=== PATIENT | male | born 1945 | race Caucasian/White ===

== ENCOUNTER 2017-11-20 09:59 | Emergency (ER) | payer OTHER ==
[2017-11-20 10:16] VITALS: BP 122/66
--- NOTE | 2017-11-20 10:17 | UC ---
Knee Pain HPI - HPI Summary HPI Summary: 72 yo male presents with severe right knee pain since waking up this morning. He tells me that he was feeling fine yesterday, but rolled over in bed this morning and realized his right knee was swollen and painful. He cannot bear weight. He cannot flex his knee due to pain. 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 Also has a LEFT TKR. Denies fever, chills, SOB , chest pain. - History of Current Complaint Chief Complaint: UCLowerExtremity Stated Complaint: KNEE PAIN Time Seen by Provider: 11/20/17 10:17 Hx Obtained From: Patient Onset/Duration: Sudden Onset Severity Initially: Severe Severity Currently: Severe Pain Intensity: 10 Pain Scale Used: 0-10 Numeric Character: Sharp, Aching, Stiffness Able to Bear Weight: No - Allergies/Home Medications Allergies/Adverse Reactions: Allergies Allergy/AdvReac Type Severity Reaction Status Date / Time latex Allergy Hives Verified 11/20/17 10:17 neopreme Allergy Hives Uncoded 11/20/17 10:17 Home Medications: Home Medications Atorvastatin* [Lipitor*] 10 mg PO 1700 11/20/17 [History Confirmed 11/20/17] Levothyroxine TAB* [Synthroid TAB*] 25 mcg PO 0800 11/20/17 [History Confirmed 11/20/17] Meloxicam 7.5 mg PO DAILY 11/20/17 [History Confirmed 11/20/17] Temazepam 1 cap PO DAILY 11/20/17 [History Confirmed 11/20/17] PMH/Surg Hx/FS Hx/Imm Hx Endocrine History: Hypothyroidism, Dyslipidemia Psychological History: Anxiety - Surgical History Surgical History: Yes Surgery Procedure, Year, and Place: bilateral knee replacements - Family History Known Family History: Positive: Hypertension - Social History Occupation: Retired Lives: With Family Alcohol Use: Occasionally Substance Use Type: None Smoking Status (MU): Former Smoker Review of Systems Constitutional: Fever Skin: Negative Respiratory: Negative Cardiovascular: Negative Neurovascular: Negative Musculoskeletal: Other: - Right knee pain Neurological: Negative Psychological: Negative All Other Systems Reviewed And Are Negative: Yes Physical Exam - Summary Physical Exam Summary: GENERAL: NAD. WDWN. SKIN: No rashes, sores, lesions, or open wounds. NECK: Supple. Nontender. No lymphadenopathy. CHEST: No accessory muscle use. Breathing comfortably and in no distress. CV: RRR. Without m/r/g. Pulses intact popliteal, PT, and DP. Brisk cap refill. MSK: Severe TTP about right knee. Moderate edema. Mild warmth. Resting with knee extended - unable to flex due to pain. Unable to bear weight. NEURO: Alert. Sensations intact and symmetric B/L LEs PSYCH: Age appropriate behavior. Triage Information Reviewed: Yes Vital Signs: Initial Vital Signs Temp 101.6 F 11/20/17 10:11 Pulse 86 11/20/17 10:11 Resp 18 11/20/17 10:11 BP 122/66 11/20/17 10:11 Pulse Ox 100 11/20/17 10:11 Knee Pain Course/Dx - Course Course Of Treatment: XR: IMPRESSION: PERIPROSTHETIC FRACTURE OF THE PROXIMAL TIBIA, AGE INDETERMINATE. RECOMMEND. CLINICAL CORRELATION. IN ADDITION, RECOMMEND AN X-RAY OF THE LOWER LEG FOR FURTHER EVALUATION. He is febrile on exam, thus suspect septic joint - advised pt to be further evaluated in the ED. He was agreeable to this and his will drive him. - Differential Dx/Diagnosis Provider Diagnoses: Septic right knee Discharge - Sign-Out/Discharge Documenting (check all that apply): Discharge/Admit/Transfer - Discharge Plan Condition: Stable Disposition: HOME Referrals: Zulema Jara [Primary Care Provider] - Additional Instructions: Please go to the ER for further evaluation of your knee pain and fever - Billing Disposition and Condition Condition: STABLE Disposition: Home
--- NOTE | 2017-11-20 11:09 | RAD ---
INDICATION: Right knee pain status post total knee replacement. COMPARISON: Comparison is made with a prior study from September 13, 2017. TECHNIQUE: 4 views of the right knee were obtained. FINDINGS: The patient is status post total right knee replacement surgery. The bones and prostheses are in normal alignment. There is no gross evidence for loosening. There appears to be a fracture through the posterior cortex of the tibia just distal to the distal stem of the tibial prostheses age indeterminate. This area was not well seen on the prior study. IMPRESSION: PERIPROSTHETIC FRACTURE OF THE PROXIMAL TIBIA, AGE INDETERMINATE. RECOMMEND CLINICAL CORRELATION. IN ADDITION, RECOMMEND AN X-RAY OF THE LOWER LEG FOR FURTHER EVALUATION.
== END 2017-11-20 11:10 | disposition home or self-care (01) ==
LOC: UCEAST 09:59
DX: L03.115 Cellulitis of right lower limb (principal); E78.5 Hyperlipidemia, unspecified; E03.9 Hypothyroidism, unspecified; F41.9 Anxiety disorder, unspecified; Z79.899 Other long term (current) drug therapy; Z91.09 Other allergy status, other than to drugs and biological substances; Z91.040 Latex allergy status; Z87.891 Personal history of nicotine dependence
CPT/HCPCS: 99212; G0463

== ENCOUNTER 2017-11-20 11:35 | Inpatient (IN) | payer OTHER ==
[2017-11-20] MEDS ORDERED: NS 0.9% 1000 ML*IV.FLUID IV ONE (11:43)
[2017-11-20] MEDS ORDERED: Vancomycin(*) 1,000 MG in NS 0.9% 250 ML* 250 ML IVPB ONE (11:46)
[2017-11-20] MEDS ORDERED: Cefepime 2 GM in Dextrose(*) 2 GM/50 ML BAG IV ONE (11:46)
[2017-11-20 12:04] LABS: Hematocrit 39 % (42-52); Hemoglobin 13.1 g/dl (14.0-18.0); Mean Corpuscular HGB Conc 34 g/dl (31-36); Mean Corpuscular Hemoglobin 30 pg (27-31); Mean Corpuscular Volume 88 fL (80-94); Mean Platelet Volume 7.8 um3 (7.4-10.4); Platelet Count 179 10^3/ul (150-450); Red Blood Count 4.38 10^6/ul (4.00-5.40); Red Cell Distribution Width 13 % (10.5-15); White Blood Count 25.9 10^3/ul (3.5-10.8)
--- NOTE | 2017-11-20 12:14 | ED ---
Lower Extremity - HPI Summary HPI Summary: Patient presents with acute atraumatic right knee pain and swelling upon waking this morning - sent from . Pain 8-9/10. Notes swelling compared to Lt knee and pain radiates down into dickson area with walking at times. Otherwise pain is felt within knee, mostly "under patella". He also admits to subjective sweats alternating with chills. Denies headache, neck pain or stiffness, chest pain or shortness of breath, abdominal pain, nausea, vomiting, diarrhea, dysuria, back pain, skin issues/wounds/rashes. He reports he's had bilateral knee replacements, 2 times on the right once in 2005 and again in 2012. The surgeries were performed at the [facility] in [place] by Dr. Lazar who is now retired. He denies previous infection of either replacement. He also reports about a month ago he was noticing some "looseness" with intermittent pangs of pain just beneath the patella in his right knee. He went to the [facility] for consult and was told to start wearing a neoprene knee sleeve. He tried this once and had a severe reaction to his skin and has not anything since. His pain is been intermittent but nothing like he's had today. Looking back through, his charts, he's been seen for pain in the Rt knee 2017. No fx is noted at this time and hardware in place, however on XR today at , a periprosthetic fx is noted, age undetermined. Pt mentioned he had a fx in his tibia from one of the replacements - unclear if this is the same or relatively new. Could be source of pain, looseness as mentioned above as well as infection. - History of Current Complaint Chief Complaint: EDFever Stated Complaint: RT KNEE POS INFECTION-SENT F/CC Time Seen by Provider: 11/20/17 11:43 Hx Obtained From: Patient, Family/Orthopedic Radiologic Technologist - Pain Intensity: 8 - Allergies/Home Medications Allergies/Adverse Reactions: Allergies Allergy/AdvReac Type Severity Reaction Status Date / Time latex Allergy Hives Verified 11/20/17 10:17 neopreme Allergy Hives Uncoded 11/20/17 10:17 Home Medications: Home Medications Glucosamine CAP (NF) 2 cap PO DAILY 11/20/17 [History Confirmed 11/20/17] Multivitamin [Multivitamins] 1 cap PO DAILY 11/20/17 [History Confirmed 11/20/17 ] PMH/Surg Hx/FS Hx/Imm Hx Previously Healthy: Yes Endocrine/Hematology History: Reports: Hx Thyroid Disease - takes medication Denies: Hx Anticoagulant Therapy, Hx Blood Disorders, Hx Bone Marrow Disease , Hx Diabetes, Autoimmune Disease Respiratory History: Denies: Hx Asthma, Hx Chronic Obstructive Pulmonary Disease (COPD) Musculoskeletal History: Reports: Hx Arthritis, Hx Joint Replacement - B/L knees Denies: Hx Rheumatoid Arthritis, Hx Bursitis, Hx Gout - Surgical History Surgery Procedure, Year, and Place: bilateral knee replacements Infectious Disease History: No Infectious Disease History: Denies: Hx of Known/Suspected MRSA, Traveled Outside the [place] in Last 30 Days - Family History Known Family History: Positive: Hypertension - Social History Occupation: Retired Lives: With Family - Alcohol Use: Occasionally Hx Substance Use: No Substance Use Type: Reports: None Hx Tobacco Use: Yes - not currently Smoking Status (MU): Former Smoker Review of Systems Positive: Fever, Chills. Negative: Fatigue Cardiovascular: Negative Respiratory: Negative Gastrointestinal: Negative Positive: no symptoms reported Positive: Arthralgia, Decreased ROM, Edema Skin: Negative Neurological: Negative Psychological: Normal All Other Systems Reviewed And Are Negative: Yes Physical Exam Triage Information Reviewed: Yes Vital Signs On Initial Exam: Initial Vitals Temp Pulse Resp BP Pulse Ox 102.4 F 81 20 119/61 98 11/20/17 11:38 11/20/17 11:38 11/20/17 11:38 11/20/17 11:38 11/20/17 11:38 Vital Signs Reviewed: Yes Appearance: Positive: Well-Appearing, No Pain Distress, Well-Nourished Skin: Positive: Warm, Skin Color Reflects Adequate Perfusion, Dry - no judith erythema or fever of Rt knee compared to Lt however it does appear larger than Lt - no ecchymosis, no streaking; dried, scalling skin along popliteal region which pt reports is reaction from neoprene - dry, NTTP and appears to be healing well Head/Face: Positive: Normal Head/Face Inspection Eyes: Positive: Normal, EOMI, Conjunctiva Clear ENT: Positive: Hearing grossly normal, Pharynx normal - mucosa moist Respiratory/Lung Sounds: Positive: Clear to Auscultation, Breath Sounds Present Cardiovascular: Positive: Normal, RRR, Pulses are Symmetrical in both Upper and Lower Extremities. Negative: Leg Edema Left, Leg Edema Right Abdomen Description: Positive: Nontender, Soft Bowel Sounds: Positive: Present Musculoskeletal: Positive: Strength/ROM Intact - ankle, toes, hip, Limited @ - Rt knee ROM is limited - can extend but is painful; flexion is limited d/t pain at about 15-20 degrees; pain in Rt knee w/ mobilizing this LE in any fashion, Pain @ - anterior proximal tibial region - no popliteal region pain. No judith effusion appreciated but Rt knee is noted to be larger than Lt Neurological: Positive: Normal, Sensory/Motor Intact, Alert, Oriented to Person Place, Time, CN Intact II-III Psychiatric: Positive: Normal - pleasant, calm, polite, alert, good historian Procedures - Procedure Summary Procedure Summary: Rt knee joint aspiration: inferolateral approach to the Rt patella - cleaned area with chlorhexadine before draping and injecting lidocaine 1% superficially cleaned area again 3 x with iodine before inserting 18 gauge needle and aspirating negligible amount of blood before removing needle. This was placed in a cx tube and sent to lab. Hemodynamically stable - dressing applied - pt tolerated well Supervised by Dr. Macias. Diagnostics - Vital Signs Vital Signs Temp Pulse Resp BP Pulse Ox 11/20/17 11:38 102.4 F 81 20 119/61 98 - Laboratory Lab Results: Lab Results 11/20/17 Range/Units 11:57 WBC 25.9 H (3.5-10.8) 10^3/ul RBC 4.38 (4.00-5.40) 10^6/ul Hgb 13.1 L (14.0-18.0) g/dl Hct 39 L (42-52) % MCV 88 (80-94) fL MCH 30 (27-31) pg MCHC 34 (31-36) g/dl RDW 13 (10.5-15) % Plt Count 179 (150-450) 10^3/ul MPV 7.8 (7.4-10.4) um3 Neut % (Auto) Pending Lymph % (Auto) Pending Twiggs % (Auto) Pending Eos % (Auto) Pending Baso % (Auto) Pending Absolute Neuts (auto) Pending Absolute Lymphs (auto) Pending Absolute Monos (auto) Pending Absolute Eos (auto) Pending Absolute Basos (auto) Pending Absolute Nucleated RBC Pending Nucleated RBC % Pending ESR Pending Result Diagrams: 11/23/17 05:44 11/23/17 05:44 Lab Statement: Any lab studies that have been ordered have been reviewed, and results considered in the medical decision making process. Re-Evaluation - Re-Evaluation First Eval Change: Improved - pain and fever improved however pt continued to have pain - acetaminophen was added once surgery would not be taking place any time soon Lower Extremity Course/Dx - Course Course Of Treatment: Pt presents w/ atraumatic Rt knee pain, swelling and stiffness this morning. He also has a fever of 102.4F. H/o 2 Rt TKR's. Spoke w / Dr. Quinteros, ortho on-call, who reports pt needs a revision and he is not equipped to do that. Does not recommend aspiration or any other treatments. Called Dr. Carlson @ [facility] per pt's request as this is where he's had his previous surgeries and they are concerned pt is not stable enough to travel to them. Feel that if pt has purulent drainage in his knee, he needs an I&D to debride the area. If not, needs better sepsis control before completely opening knee joint for wash out and joint replacement. Spoke w/ Dr. Herndon, 2nd ortho on-call here at [facility], who agrees pt may be admitted for sepsis and he will consult. He agrees to I&D if purulence is found in the knee with aspiration. He suspects this is septic knee vs. osteomyelitis. If pt does in fact require more extensive surgery, he will be referred to [facility] upon better control of infection. Dr. Herndon and Dr. Carlson are aware and agree w/ plan. Upon my attempt to aspirate, no purulence is identified. Sepsis protocol was initated as soon as pt arrived given his hx. He has a fever of 102.4F and WBC of 25. Fever improved with toradol and vitals remain well controlled. Critical care time 45 minutes. He will be admitted under Dr. Guerra. Pt stable and comfortable at time of transition of care. - Diagnoses Provider Diagnoses: Sepsis, Right knee skin infection Discharge - Sign-Out/Discharge Documenting (check all that apply): Discharge/Admit/Transfer - Discharge Plan Condition: Good Disposition: ADMITTED TO [facility] - Billing Disposition and Condition Condition: GOOD Disposition: Admitted to [facility]
[2017-11-20] MEDS ORDERED: Ketorolac INJ* 30 MG/ML 1 ML VIAL IV PUSH ONE (12:17)
[2017-11-20 12:20] LABS: INR 1.18 (0.77-1.02)
[2017-11-20 12:21] LABS: EGFR Non-African American 74.1 (>60)
[2017-11-20 12:25] LABS: ABS Basophils 0 10^3/ul (0-0.2); ABS Eosinophils 0 10^3/ul (0-0.6); ABS Lymphocytes 0.5 10^3/ul (1.0-4.8); ABS Monocytes 2.4 10^3/ul (0-0.8); ABS Nucleated RBC 0 10^3/ul; Eosinophil % 0 % (0-6); Lymphocyte % 1.9 % (25-47); Nucleated Red Blood Cells % 0
--- NOTE | 2017-11-20 12:36 | RAD ---
INDICATION: Sepsis. COMPARISON: There are no prior studies available for comparison. TECHNIQUE: A portable view of the chest was obtained. FINDINGS: Cardiac and mediastinal contours appear to be within normal limits. The lungs are clear. No pleural effusion is seen. IMPRESSION: NO EVIDENCE FOR ACUTE DISEASE.
[2017-11-20] MEDS ORDERED: Acetaminophen TAB* 325 MG PO ONE (13:38)
[2017-11-20] MEDS ORDERED: Ondansetron INJ* 2 MG/ML VIAL IV PRN (14:18)
[2017-11-20] MEDS ORDERED: NS 0.9% 1000 ML* 1,000 ML IV SCH (14:30)
[2017-11-20] MEDS ORDERED: Vancomycin per Pharmacy* NOTE FOLLOW UP SCH (15:00)
[2017-11-20] MEDS ORDERED: Cefepime 1 GM in Dextrose(*) 1 GM/50 ML BAG IV SCH (15:00)
[2017-11-20] MEDS: Atorvastatin* 10 MG TAB PO SCH (16:21)
[2017-11-20] MEDS: Vancomycin(*) 1,000 MG in NS 0.9% 250 ML* 250 ML IVPB ONE ×2 (16:22→16:38)
[2017-11-20] MEDS ORDERED: Pneumococcal *Vac Polyvalent 0.5 ML VIAL IM ONE (17:00)
[2017-11-20] MEDS: oxyCODONE/Acetamin 5/325 MG* TAB PO PRN (18:12)
--- NOTE | 2017-11-20 19:11 | HP ---
CC: Zulema Jara NP with [facility] * MEDICINE HISTORY AND PHYSICAL: DATE OF ADMISSION: 11/20/17 PROVIDER: Shweta Krishnamurthy NP ATTENDING PHYSICIAN: Dr. Kenn Guerra * (dictated by Shweta Krishnamurthy NP). CONSULTING PHYSICIAN: Dr. Claudio Herndon, Orthopedic Surgery. PRIMARY CARE PROVIDER: Zulema Jara NP, at [facility]. CHIEF COMPLAINT: Right knee pain. HISTORY OF PRESENT ILLNESS: Mr. Sr is a 72-year-old male patient who initially presented to [facility] with complaint of right knee pain. He states that he woke up this morning with excruciating pain, but denies any known trauma or open wounds to the extremity. He noted that there was pain and swelling as well as heat and redness to the extremity. He states that just under the patella that there was excruciating pain with light touch. He also admits to subjective sweats and alternating with chills. The pain is severe and constant. He states that his leg was collapsed when trying to ambulate. He denies any headache, neck pain or stiffness, previous fever, chest pain, shortness of breath, abdominal pain, nausea, vomiting, diarrhea, dysuria, rashes , wounds or back pain. He does report that a month ago, he was having some "looseness" with intermittent pain and was seen at the outpatient [facility] in [place]. He was recommended to start wearing a neoprene knee sleeve, but states that he wore it and that he had extreme reaction with redness and hives that only just recently resolved. Pain has continued to be intermittent, but not to the extent that it has been today. Again, he denies any previous fevers. Mr. Sr has multiple surgeries including bilateral knee replacements, but the right knee being replaced twice once in 2005 and again in 2012. His physician was Dr. Lazar who is now retired and they were performed at the [facility] in [place]. He denies any complications or previous infections with either replacement. Here in the ER, he has had fever as high as 102.4. He has had a bedside attempt for incision and drainage, but minimal to no purulent was obtained. The culture from procedure is still pending. The case was discussed with Dr. Quinteros of Orthopedic Surgery who referred the patient to go to [place] to see his previous physician. However, the [facility] was concerned that the patient was stable to make the transfer and felt that he would at least need to be treated with an incision and drainage here prior to going to the facility. The case was also reviewed by Dr. Herndon of [facility] who agreed to consult on the patient. PAST MEDICAL HISTORY: Includes: 1. Hypothyroidism. 2. Hyperlipidemia. 3. Osteoarthritis. PAST SURGICAL HISTORY: He also reports past surgical history of 3 right shoulder surgeries and 2 left shoulder surgeries as well as a left carpal tunnel release. HOME MEDICATIONS: 1. Multivitamin 1 capsule daily. 2. Meloxicam 7.5 mg daily. 3. Glucosamine 2 capsules daily. 4. Atorvastatin 10 mg in the evening. 5. Temazepam 15 mg at bedtime. 6. Levothyroxine 25 mcg q.a.m. ALLERGIES: Include LATEX and NEOPRENE. FAMILY HISTORY: Unknown. The patient states he is adopted. SOCIAL HISTORY: He is a former smoker. He states that he quit 40 years ago. He denies any history of alcohol use. He occasionally smokes marijuana. He is retired. He enjoys fishing and states that he is very active with walking long distances and is able to tow a canoe through the [place] for a fishing in [place]. He is not , but he does live with is ex- who is now "his domestic partner." Her name is Jeri Jamison and she is his surrogate decision maker in the event of emergency. REVIEW OF SYSTEMS: As per HPI. All pertinent positives and negatives are included in the HPI. A 12-point review of systems was completed. PHYSICAL EXAMINATION GENERAL: This is a very pleasant older male patient lying on the ED stretcher, in no acute distress. VITAL SIGNS: Temperature 100.5, pulse rate 83, respiratory rate 18, blood pressure 114/68 and O2 saturation is 95% on room air. HEENT: Head is atraumatic, normocephalic. Face is symmetrical. Pupils are equal, round and reactive to light. Extraocular movements are intact. Oral mucosa is moist. There is no oropharyngeal erythema or exudates. NECK: Supple with full range of motion. No tenderness upon palpation. No lymphadenopathy appreciated. No JVD noted. RESPIRATORY: Lungs are clear to auscultation. CARDIAC: Normal S1 and S2 heart sounds with regular rate and rhythm. No murmurs, rubs or gallops appreciated. There is no left-sided peripheral edema. There is mild right-sided edema distal to the knee joint, most notably in the pretibial region. Distal pulses are 2+ and symmetric and equal. ABDOMEN: Soft, nontender and nondistended with normoactive bowel sounds times all 4 quadrants. There is no hepatosplenomegaly. MUSCULOSKELETAL: There is no clubbing or cyanosis. The patient does have full range of motion of the upper extremities, left lower extremity, right is slightly limited with flexion of the right knee secondary to pain. SKIN: No rashes noted. There is significant heat and tenderness to the right lower extremity. Mild erythema most notably at the level of patella and just distally along the tibia. There is more notably pretibial edema. Again as per above, there is a strong pedal pulses. NEURO: Cranial nerves II through XII are grossly intact. No focal deficits noted. Speech is clear. PSYCH: He is alert and oriented x3. Affect is appropriate. LABORATORY DATA AND DIAGNOSTIC STUDIES: CBC: WBC is 25.9, hemoglobin 13.1, hematocrit 39, platelet count 179. CMP: Sodium 138, potassium 3.8, chloride 103, carbon dioxide 25, BUN 12, creatinine 0.99, glucose 113, lactic acid 2.0, calcium 9.2, total bilirubin 1.3, AST 19, ALT 24, alk phos 58, troponin 0.01. CRP is 68.22. Albumin 4.4. EKG reviewed shows normal sinus rhythm with no ST or T-wave changes to indicate acute ischemia. There was borderline right axis deviation, rate at 82. No previous EKGs on record. Chest x-ray shows no acute pathology. Urinalysis is pending. Wound culture is also pending. There are limited records on this patient in our system for review. ASSESSMENT AND PLAN: Mr. Sr is a 72-year-old gentleman with a history of hypothyroidism, osteoarthritis, hyperlipidemia, and previous knee replacements who presents today with concern for fever and pain thought to be secondary to septic arthritis versus osteomyelitis. 1. Right knee pain, suspected osteomyelitis. Following this, attempted bedside incision and drainage with very little purulence or fluid to be cultured from the joint space. This was reviewed with Dr. Herndon and there was a decision made that to not take the patient to the OR today for an incision and drainage as this more likely represents an osteomyelitis. In any event, Mr. Sr received cefepime and vanco in the ER, which will be continued pending the culture result in order to ensure that he has appropriate MRSA and gram negative coverage. He has received the appropriate fluid bolus with concern for sepsis and he will be continued on continuous IV fluids. As he is not going to the OR, he will be allowed to eat. He will receive Ortho consultation later. He received Toradol in the ER with good effect, but given that he may be going to the OR in the near future, we will hold on any further Toradol and he will be started on IV morphine and p.r.n. Percocet as needed for pain and this will be adjusted accordingly. He is currently nonweightbearing to the extremity given the amount of pain that it causes him. Again, he has pending orthopedic evaluation. In addition to the Orthopedics Surgical consult , we will also request an Infectious Disease consult from Dr. Haas for presumed colonization of existing hardware. 2. Sepsis. Mr. Sr meets sepsis criteria, but the so far criteria scoring 4 with mildly elevated total bilirubin indicating beginning of multiorgan system effects. He also was noted to have a MAP less than 70 during his time in the ER , although this has been appropriately resolved with fluids. Additionally, he does have leukocytosis and significant fevers. He has appropriately received antibiotic therapy and blood cultures were drawn prior to initiation of these therapies. Urine is pending. The chest x-ray shows no other concerns. It is likely that the patient's right lower extremity is the source of the sepsis and given that he has had knee replacement and he has hardware in the extremity, there is concern for osteomyelitis and colonization of the hardware, which will need to be addressed. At this point in time, we will continue supportive care and closely monitor this patient. 3. Hypothyroidism. Continue current dose of levothyroxine. 4. Hyperlipidemia. Continue atorvastatin. 5. History of osteoarthritis. The patient has appropriate pain medications. Meloxicam will be held in anticipation of potential surgery and further procedures. 6. Preoperative clearance. Mr. Sr does not have any known history of cardiac disease, diabetes or chronic kidney disease. There are no EKG or chest x-ray abnormalities of concern. He is not chronically on any antiplatelet agents or anticoagulants and only takes meloxicam, which is currently on hold. He has good activity tolerance. He is able to climb flight of stairs. He is active and walks extensive distances on a regular basis. He does appear to be medically optimized for surgery, should he need it. 7. FEN. He has ordered continuous fluids. As he is not going to the OR today , he will be ordered a heart healthy diet. 8. DVT prophylaxis. He is ordered SCDs and subcu heparin, which will be held once there is a confirmed time and date for any surgical interventions. 9. Code status. He is a full code. 10. Disposition. Pending response to current therapies. TIME SPENT: Time spent on this admission was approximately 60 minutes with more than half that time spent [id number] with the patient obtaining history and physical, performing physical examination and reviewing the plan of care. Plan of care was also reviewed with my attending, Dr. Guerra, who is in agreement. SHWETA KRISHNAMURTHY, GEGE [id number]/CPS #: [id number] BLAYNE
[2017-11-20] MEDS: Temazepam CAP* 15 MG PO SCH (20:27)
[2017-11-20] MEDS: Cyclobenzaprine TAB* 10 MG PO PRN (20:27)
[2017-11-20] MEDS: RiFAMPin CAP* 300 MG CAP PO SCH (20:27)
--- NOTE | 2017-11-20 21:38 | CONS ---
ORTHOPEDIC CONSULT: DATE OF CONSULT: 11/20/17 CHIEF COMPLAINT: Right knee. HISTORY OF PRESENT ILLNESS: Mr. Sr is a 72-year-old male who got up at 3:00 in the morning to go the bathroom to urinate and had severe right knee pain. He also had some chills and sweats and was brought to the emergency room here earlier today. His knee was warm and painful, and x-rays show a chronic area where the cortex proximally appears to have a defect. This was read as a fracture by the radiologist. When talking about the knee, he reports it may have been a month or so where it was bothering him, but I pointed out to him that he has x-rays from 09/13/17 where he had presented with knee pain. He reports it may have been going on for some time. [facility] time and a neoprene sleeve was recommended to reduce the swelling. He reports he had quite the skin reaction and still has some of that behind the knee. He did have the knee replaced in approximately 2006 and then underwent a revision in 2012. At the time of the revision, the stem on the tibial component broke the tibia at the midshaft. He reports once it healed, he had done all right until several months ago. He would notice that the knee would occasionally give him some troubles and describes it as the knee wanting to hyperextend. In some ways this is odd as he has a constrained knee, so there is no way that the knee could hyperextend or in any way be unstable. He does though already in August have that very specific lytic area proximally and there is osteolysis of the lateral tibial plateau. When I ask him where his pain is, that is exactly where he first points, then all about the proximal tibia and he moves up to the knee as well. PREVIOUS MEDICAL HISTORY: Hypothyroidism and dyslipidemia. MEDICATIONS: On admission: 1. Meloxicam 7.5 mg daily. 2. Atorvastatin 10 mg p.o. q.h.s. 3. Levothyroxine 25 mcg daily. 4. Temazepam 15 mg p.o. q.h.s. He also takes supplements includin. Glucosamine. 2. Multivitamin. MEDICATION ALLERGIES: LATEX and NEOPRENE. PHYSICAL EXAM: General: Mature male, in no apparent distress, sitting up in the hospital bed. Right knee: He is wrapped from where he had the knee aspirated, but that appears benign. He has a scar anteriorly about the knee and it does appear that it has been gone through at least once as it has that sunken-in appearance. He is not particularly tender about the medial and lateral femoral condyles, but as I come to the flare of the tibia, he is very specifically much more tender both in the medial and lateral aspects. He is less tender anteriorly over the tibial tubercle. He prefers that the knee is slightly bent, but can bring the knee further out in extension and flex a little bit further. He then started to have more troubles with muscle spasms. ASSESSMENT: Osteomyelitis, right proximal tibia. PLAN: I discussed with Mr. Sr that I am not convinced that the joint itself is infected, rather he appears to have either osteolysis of the proximal tibia with a fracture, or an osteomyelitis considering there was no other pain that he had. With the warmth of the proximal tibia, x-ray changes and his increased CRP, osteomyelitis of the proximal tibia is a more likely diagnosis. For the sepsis protocol, it was important that he be started with the antibiotic, so unfortunately the aspiration of the knee was done after that. The Gram stain for the knee was negative, but final cultures will still be pending. I discussed with Mr. Sr that with an infection of the bone, sometimes this can be suppressed using antibiotic treatment, specifically Bactrim DS twice a day with rifampin 300 mg twice a day. He has been started on cefepime and vancomycin, and I will add in the rifampin. I will also add in Flexeril for him to help with his muscle spasms. Once he is improved from a sepsis standpoint, he can be discharged on the Bactrim and rifampin, and follow up with the [facility] orthopedist. They could then discuss debridement. In some ways, not removing the knee would make sense, but there may not be any other way to address the infection in the proximal tibia. For right now though , he is clearly stable and does not need a washout of the knee nor a removal of his components. [id number] #: [id number] BLAYNE
[2017-11-20] MEDS: Acetaminophen TAB* 325 MG PO PRN (21:47)
[2017-11-20] MEDS: Heparin VIAL(*) 5000 UNITS/ML VIAL (FIVE THOUSAND) SUBCUT SCH (21:48)
[2017-11-20] MEDS ORDERED: Vancomycin(*) 1,000 MG in NS 0.9% 250 ML* 250 ML IVPB SCH (23:00)
[2017-11-20] MEDS: Vancomycin(*) 1,250 MG in NS 0.9% 250 ML* 250 ML IVPB SCH (23:02)
[2017-11-20] MEDS: Morphine VIAL* 4 MG/ML VIAL (1 ml vial) IV PRN (23:09)
[2017-11-21] MEDS: Cefepime 1 GM in Dextrose(*) 1 GM/50 ML BAG IV SCH ×2 (00:34→15:52)
[2017-11-21] MEDS: oxyCODONE/Acetamin 5/325 MG* TAB PO PRN (00:55)
[2017-11-21] MEDS: Heparin VIAL(*) 5000 UNITS/ML VIAL (FIVE THOUSAND) SUBCUT SCH (05:33)
[2017-11-21] MEDS: Levothyroxine TAB* 25 MCG TAB PO SCH (05:33)
[2017-11-21] MEDS: Cyclobenzaprine TAB* 10 MG PO PRN (07:43)
[2017-11-21 07:44] LABS: Hematocrit 36 % (42-52); Hemoglobin 12.2 g/dl (14.0-18.0); Mean Corpuscular HGB Conc 34 g/dl (31-36); Mean Corpuscular Hemoglobin 30 pg (27-31); Mean Corpuscular Volume 89 fL (80-94); Mean Platelet Volume 8.3 um3 (7.4-10.4); Platelet Count 147 10^3/ul (150-450); Red Blood Count 4.03 10^6/ul (4.00-5.40); Red Cell Distribution Width 14 % (10.5-15)
[2017-11-21] MEDS: Morphine VIAL* 4 MG/ML VIAL (1 ml vial) IV PRN (07:44)
[2017-11-21 07:45] LABS: ABS Basophils 0 10^3/ul (0-0.2); ABS Eosinophils 0 10^3/ul (0-0.6); ABS Lymphocytes 1.6 10^3/ul (1.0-4.8); ABS Monocytes 2.7 10^3/ul (0-0.8); ABS Neutrophils 24.6 10^3/ul (1.5-7.7); ABS Nucleated RBC 0 10^3/ul; Eosinophil % 0 % (0-6); Lymphocyte % 5.6 % (25-47); Nucleated Red Blood Cells % 0
[2017-11-21 08:44] LABS: EGFR Non-African American 73.2 (>60)
[2017-11-21] MEDS: Vitamin THERAPEUTIC TAB PO SCH (09:38)
[2017-11-21] MEDS: RiFAMPin CAP* 300 MG CAP PO SCH ×2 (09:38→20:53)
--- NOTE | 2017-11-21 10:30 | PN ---
Progress Note - Progress Note Date of Service: 11/21/17 SOAP: Subjective: Pt is doing well. Cont fever/chills but improving. Pain controlled. Denies CP/ SOB. VSS overnight Objective: PE- 72 y/o M NAD, A&Ox3 RLW- skin intact, well healed surgical incision, warmth surrounding the proximal tibia and knee, tender to palpation over knee, mild effusion, + DF/PF ankle, +2 Dp pulse, SILT distally Vital Signs Temp Pulse Resp BP Pulse Ox 98.8 F 72 20 148/65 89 11/21/17 04:23 11/21/17 04:23 11/21/17 09:40 11/21/17 04:23 11/21/17 04:23 Laboratory Results - last 24 hr 11/20/17 11/20/17 11/20/17 11:57 11:57 11:57 WBC 25.9 H RBC 4.38 Hgb 13.1 L Hct 39 L MCV 88 MCH 30 MCHC 34 RDW 13 Plt Count 179 MPV 7.8 Neut % (Auto) 88.5 H Lymph % (Auto) 1.9 L [place] % (Auto) 9.4 H Eos % (Auto) 0 Baso % (Auto) 0.2 Absolute Neuts (auto) 23.0 H Absolute Lymphs (auto) 0.5 L Absolute Monos (auto) 2.4 H Absolute Eos (auto) 0 Absolute Basos (auto) 0 Absolute Nucleated RBC 0 Nucleated RBC % 0 ESR 13 INR (Anticoag Therapy) 1.18 H APTT 29.8 Sodium 138 Potassium 3.8 Chloride 103 Carbon Dioxide 25 Anion Gap 10 BUN 22 Creatinine 0.99 Est GFR ( Amer) 89.7 Est GFR (Non-Af Amer) 74.1 BUN/Creatinine Ratio 22.2 H Glucose 113 H Lactic Acid Calcium 9.2 Total Bilirubin 1.30 H AST 19 ALT 24 Alkaline Phosphatase 58 Troponin I 0.01 C-Reactive Protein 68.22 H Total Protein 7.3 Albumin 4.4 Globulin 2.9 Albumin/Globulin Ratio 1.5 11/20/17 11/20/17 11/21/17 11:57 20:23 07:16 WBC 29.0 H RBC 4.03 Hgb 12.2 L Hct 36 L MCV 89 MCH 30 MCHC 34 RDW 14 Plt Count 147 L MPV 8.3 Neut % (Auto) 84.9 H Lymph % (Auto) 5.6 L [place] % (Auto) 9.4 H Eos % (Auto) 0 Baso % (Auto) 0.1 Absolute Neuts (auto) 24.6 H Absolute Lymphs (auto) 1.6 Absolute Monos (auto) 2.7 H Absolute Eos (auto) 0 Absolute Basos (auto) 0 Absolute Nucleated RBC 0 Nucleated RBC % 0 ESR INR (Anticoag Therapy) APTT Sodium Potassium Chloride Carbon Dioxide Anion Gap BUN Creatinine Est GFR ( Amer) Est GFR (Non-Af Amer) BUN/Creatinine Ratio Glucose Lactic Acid 2.0 1.5 Calcium Total Bilirubin AST ALT Alkaline Phosphatase Troponin I C-Reactive Protein Total Protein Albumin Globulin Albumin/Globulin Ratio 11/21/17 07:16 WBC RBC Hgb Hct MCV MCH MCHC RDW Plt Count MPV Neut % (Auto) Lymph % (Auto) [place] % (Auto) Eos % (Auto) Baso % (Auto) Absolute Neuts (auto) Absolute Lymphs (auto) Absolute Monos (auto) Absolute Eos (auto) Absolute Basos (auto) Absolute Nucleated RBC Nucleated RBC % ESR INR (Anticoag Therapy) APTT Sodium 139 Potassium 4.1 Chloride 107 Carbon Dioxide 23 Anion Gap 9 BUN 25 H Creatinine 1.00 Est GFR ( Amer) 88.6 Est GFR (Non-Af Amer) 73.2 BUN/Creatinine Ratio 25.0 H Glucose 99 Lactic Acid Calcium 8.7 Total Bilirubin AST ALT Alkaline Phosphatase Troponin I C-Reactive Protein 239.63 H Total Protein Albumin Globulin Albumin/Globulin Ratio Assessment: 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
[2017-11-21] MEDS: Vancomycin(*) 1,250 MG in NS 0.9% 250 ML* 250 ML IVPB SCH (11:04)
[2017-11-21] MEDS: Acetaminophen TAB* 325 MG PO PRN ×2 (11:10→20:00)
--- NOTE | 2017-11-21 11:12 | PN ---
Subjective Date of Service: 11/21/17 Interval History: pt c/o intermittent rigors/chills. Pain in R leg still unchanged, severe when moving Objective Active Medications: Acetaminophen (Tylenol Tab*) 650 mg PO Q4H PRN PRN Reason: FEVER/PAIN Last Admin: 11/20/17 21:47 Dose: 650 mg Atorvastatin Calcium (Lipitor*) 10 mg PO 1700 [facility] Last Admin: 11/20/17 16:21 Dose: 10 mg Cyclobenzaprine HCl (Flexeril Tab*) 10 mg PO TID PRN PRN Reason: SPASMS - MUSCLE Last Admin: 11/21/17 07:43 Dose: 10 mg Heparin Sodium (Porcine) (Heparin Vial(*)) 5,000 units SUBCUT Q8HR [facility] Last Admin: 11/21/17 05:33 Dose: 5,000 units Cefepime HCl (Maxipime 1 Gm In Dextrose Duplex (*)) 1 gm in 50 mls @ 100 mls/ hr IV Q12H [facility] Last Admin: 11/21/17 00:34 Dose: 100 mls/hr Vancomycin HCl 1,250 mg/ (Sodium Chloride) 250 mls @ 166.667 mls/hr IVPB Q12H [facility] Last Admin: 11/21/17 11:04 Dose: 166.667 mls/hr Sodium Chloride (Ns 0.9% 1000 Ml*) 1,000 mls @ 150 mls/hr IV PER RATE [facility] Levothyroxine Sodium (Synthroid Tab*) 25 mcg PO DAILY@0600 [facility] Last Admin: 11/21/17 05:33 Dose: 25 mcg Morphine Sulfate (Morphine Vial*) 2 mg IV Q4H PRN PRN Reason: PAIN - MILD Last Admin: 11/21/17 07:44 Dose: 2 mg Multivitamins (Theragran Tab*) 1 tab PO DAILY [facility] Last Admin: 11/21/17 09:38 Dose: 1 tab Ondansetron HCl (Zofran Inj*) 4 mg IV Q4H PRN PRN Reason: NAUSEA/VOMITING Oxycodone/Acetaminophen (Percocet 5/325 Tab*) 1 tab PO Q4H PRN PRN Reason: PAIN - MILD TO MODERATE Last Admin: 11/20/17 18:12 Dose: 1 tab Oxycodone/Acetaminophen (Percocet 5/325 Tab*) 2 tab PO Q4H PRN PRN Reason: PAIN - MODERATE TO SEVERE Last Admin: 11/21/17 00:55 Dose: 2 tab Pharmacy Consult (Vancomycin Per Pharmacy*) 1 note FOLLOW UP .VANC PER PHARMACY [facility] Pharmacy Profile Note (Vancomycin Trough Check) 1 note FOLLOW UP 1030 ONE Stop: 11/22/17 10:31 Rifampin (Rifampin Cap*) 300 mg PO BID [facility] Last Admin: 11/21/17 09:38 Dose: 300 mg Temazepam (Restoril Cap*) 15 mg PO BEDTIME [facility] Last Admin: 11/20/17 20:27 Dose: 15 mg Vital Signs - 8 hr 11/21/17 11/21/17 11/21/17 04:00 04:23 07:43 Temperature 98.8 F Pulse Rate 72 Respiratory 16 18 18 Rate Blood Pressure 148/65 (mmHg) O2 Sat by Pulse 89 Oximetry 11/21/17 11/21/17 07:44 09:40 Temperature Pulse Rate Respiratory 18 20 Rate Blood Pressure (mmHg) O2 Sat by Pulse Oximetry Oxygen Devices in Use Now: None Appearance: 72 yo m in nAD, AAOx3 Eyes: No Scleral Icterus Ears/Nose/Mouth/Throat: NL Teeth, Lips, Gums, Mucous Membranes Moist Neck: NL Appearance and Movements; NL JVP, Trachea Midline Respiratory: Symmetrical Chest Expansion and Respiratory Effort, Clear to Auscultation Cardiovascular: NL Sounds; No Murmurs; No JVD, RRR Abdominal: NL Sounds; No Tenderness; No Distention, No Hepatosplenomegaly Lymphatic: No Cervical Adenopathy Extremities: - - R knee and proximal tibia increased warmth, mild edema and tenderness. Severe pain elicited with any attempted movement of R leg Skin: No Rash or Ulcers, No Nodules or Sclerosis Neurological: Alert and Oriented x 3, NL Muscle Strength and Tone Result Diagrams: 11/21/17 07:16 11/21/17 07:16 Additional Lab and Data: Lab Results 11/20/17 Range/Units 11:57 WBC 25.9 H (3.5-10.8) 10^3/ul RBC 4.38 (4.00-5.40) 10^6/ul Hgb 13.1 L (14.0-18.0) g/dl Hct 39 L (42-52) % MCV 88 (80-94) fL MCH 30 (27-31) pg MCHC 34 (31-36) g/dl RDW 13 (10.5-15) % Plt Count 179 (150-450) 10^3/ul MPV 7.8 (7.4-10.4) um3 Neut % (Auto) Pending Lymph % (Auto) Pending Nicholas % (Auto) Pending Eos % (Auto) Pending Baso % (Auto) Pending Absolute Neuts (auto) Pending Absolute Lymphs (auto) Pending Absolute Monos (auto) Pending Absolute Eos (auto) Pending Absolute Basos (auto) Pending Absolute Nucleated RBC Pending Nucleated RBC % Pending ESR Pending Microbiology and Other Data: Microbiology 11/20/17 11:57 Anaerobic Blood Culture - Preliminary Blood Venous 11/20/17 14:30 Gram Stain - Final Leg Right Assess/Plan/Problems-Billing Assessment: 72 yo M with h/o r knee replacement and revision, as well as dyslipidemia presents with R knee pain and possible diagnosis of R tibia osteomyelitis - Patient Problems (1) Osteomyelitis Comment: Of R tibia +/- hardware infection. CRP increased, pt is having intermittient rigors, blood cx positive for Staph, temp >101 D/w DR. Herndon, concern for pt is septic and needs wash out. Revieved pt's medical records and pt has h/o good exercise tolerance, no h/o CAD and is an acceptable candidate for the anticipated procedure. will start NPO orders. cont broad spectrum antibiotics: Vanc/Cefepime/Rimfampin (2) DVT prophylaxis Comment: HSQ held prior to OR Status and Disposition: inpatient
[2017-11-21] MEDS ORDERED: TOBRAMYCIN 1.2 GM ONE (12:00)
[2017-11-21] MEDS ORDERED: Vancomycin(*) 1,000 MG VIAL ONE (12:11)
[2017-11-21] MEDS ORDERED: Midazolam* 1 MG/ML 2 ML VIAL (2 MG) ONE (12:25)
[2017-11-21] MEDS ORDERED: fentaNYL* 50 MCG/ML 2 ML VIAL (100 MCG VIAL) ONE ×2 (12:25→13:55)
[2017-11-21] MEDS ORDERED: Ondansetron INJ* 2 MG/ML VIAL IV ONE (12:35)
[2017-11-21] MEDS ORDERED: Ondansetron INJ* 2 MG/ML VIAL ONE (12:40)
[2017-11-21] MEDS ORDERED: Bupivacaine 0.25% W/EPI* 10 ML SDV ONE ×2 (12:42→14:27)
[2017-11-21] MEDS ORDERED: KETAMINE HCL* 50 MG/ML 10 ML VIAL ONE (13:01)
[2017-11-21] MEDS ORDERED: Propofol* 10 MG/ML 20 ML BTL IV PUSH ONE (13:33)
[2017-11-21] MEDS ORDERED: Ketorolac INJ* 30 MG/ML 1 ML VIAL ONE (13:33)
[2017-11-21] MEDS ORDERED: DiMENhydriNATE IV* 50 MG/ML VIAL ONE (13:33)
[2017-11-21] MEDS ORDERED: Succinylcholine* 20 MG/ML 10 ML VIAL ONE (13:33)
[2017-11-21] MEDS ORDERED: Lidocaine 2% PF * 5 ML VIAL ONE (13:33)
[2017-11-21] MEDS ORDERED: Dexamethasone IV* 4 MG/ML 1 ML (4 MG) ONE (13:33)
[2017-11-21] MEDS ORDERED: Naloxone* 0.4 MG/ML 1 ML VIAL IV PRN (14:50)
[2017-11-21] MEDS ORDERED: Levalbuterol 0.63MG/3ML NEB* UNIT OF USE INH ONE (14:50)
[2017-11-21] MEDS ORDERED: Acetaminophen TAB* 325 MG PO PRN (14:50)
[2017-11-21] MEDS ORDERED: DiMENhydriNATE IV* 50 MG/ML VIAL IV PUSH PRN (14:50)
[2017-11-21] MEDS ORDERED: HYDROmorphone INJ* 0.5 MG/0.5 ML SYRINGE IV PRN (14:50)
[2017-11-21] MEDS ORDERED: Levalbuterol 0.63MG/3ML NEB* UNIT OF USE INH PRN (14:50)
[2017-11-21] MEDS: NS 0.9% 1000 ML* 1,000 ML IV SCH (17:22)
[2017-11-21] MEDS: Atorvastatin* 10 MG TAB PO SCH (18:24)
[2017-11-21] MEDS: Temazepam CAP* 15 MG PO SCH (20:53)
--- NOTE | 2017-11-21 21:13 | OP ---
DATE OF OPERATION: 11/21/17 - ROOM #415 DATE OF : 43 SURGEON: Claudio Herndon MD ANESTHESIA: General endotracheal. PRE-OP DIAGNOSIS: Osteomyelitis in the right proximal tibia. POST-OP DIAGNOSIS: Right knee joint infection. OPERATIVE PROCEDURE: 1. Incision and debridement right proximal tibia 2. Athroscopic washout right TKA INDICATIONS: Mr. Sr is a 72-year-old male who has been having troubles with right knee pain and swelling for the past few months. He thought it was only about a month, but it was 09/13/17 that he had gone to [facility] and x- rays were taken when the knee was swollen. He [facility] [place] and they were contacted and they had recommended a knee brace for him. The neoprene sleeve; however, for compression gave him such a rash and then he reports that he still has some of that along the backside of the knee. He presented to the emergency room yesterday morning, again complaining of severe right knee pain. It had simply come on during the night when he had gotten up to urinate. When he was seen in the emergency room, there was no knee swelling but he was diffusely tender and more so over the proximal tibia. I had seen him in the evening and again he did not have a positive patellar ballottement sign and while he was tender over the knee, he was much more tender over the proximal tibia. I discussed with him that it appeared that he had more of an osteomyelitis, as there is a very specific lytic area on the proximal tibia. He was started on antibiotics when he came in as he was officially septic. He had received doses of vanco and cefepime and I had added rifampin for bony penetration. This morning, his white count had increased from 23,000 to 28,000 and his CRP also increased from 62 to over 200. He also continued to spike fevers and had rigors. Furthermore, his blood culture Gram stain had come back positive for staph species, but at least MSSA. There was concern that the area was infection was not being controlled and the hospitalist service and I both coordinated to get him to the OR, believing that addressing the pocket of pus would be beneficial. Unfortunately, he did have breakfast but considering the rigors, increasing white count, fevers, we felt that surgery should still be done on a more urgent basis. Anesthesia also agreed with this. I discussed all of this with Mr. Sr and that we would take him to the OR to wash out the source of infection so that like this he would not have the rigors and hopefully start to feel better. [facility] also [facility] was first [facility] as they were concerned about transferring when he was still officially in septic shock and they knew that we would wash him out if need be to help control the infection and get ahead of this. Risks of surgery such as continued infection, scar formation, stiffness, DVT, and pulmonary embolism were discussed and he had wished to proceed. I also discussed with him that we will sometimes return for a second look at 48 hours if the infection is still causing ague and his his labs aren't responding. FINDINGS: Greenish yellow thick fluid within the knee. No abscess proximal tibia. ESTIMATED BLOOD LOSS: Negligible. COMPLICATIONS: None. DESCRIPTION OF PROCEDURE: The patient was brought to the OR and rapid sequence induction was carried out. He had been unable to pee prior to surgery and had tried several times, and he was straight cathed while in the OR. Over 200 cc of dark livia fluid were obtained. Tourniquet was placed over the proximal right thigh, but was not used during the case. Right knee was prepped and then draped. Today, he appeared to have fluid in his suprapatellar pouch, something he did not have when I had seen him yesterday evening. Before I started on opening another area, in case this was not a joint infection but rather a sympathetic effusion, I made arrangements to aspirate the knee. Under sterile conditions, approximately 20 cc of a thick greenish-yellowish fluid was obtained. This was sent off for Gram stain and culture and sensitivity. Considering how it looked , I thought that this was probably the source of our infection, but I still thought it important to proceed with a tibial I and D to make sure there was not a secondary source as well. Old incision was infiltrated using 10 cc of 0.25% Marcaine with epinephrine and an incision was made directly over the inferior half of his old anterior knee incision. Incision was carried down through skin and subcutaneous scar. Blunt dissection was carried out with Metzenbaum scissors and I came down right on the periosteum of the tibia. Blunt dissection was carried out to raise full thickness flaps and periosteum was then sharply incised. Using a periosteal elevator, periosteal flap was lifted such that I came right down on the tibia. Smallest curette which almost comes to a point was then used to poke at the proximal tibia and I could not plunge in and he was completely solid all about the proximal tibia. Wound was irrigated using 3 L of normal saline and the periosteum was repaired using 2 interrupted 2-0 Vicryl sutures. Subcutaneous tissues were reapproximated with 2-0 Vicryl. Skin was closed using almas. Attention was turned to the knee. Portal sites were marked and preinjected using 0.25% Marcaine with epinephrine. I made sure I had a good angle using the needle in order so that I would come more into the intercondylar notch. Blunt trocar at the sheath was easily introduced into the knee and a camera was introduced into the sheath. Additional flow of thick yellowish green fluid was obtained when the trocar was removed. Scope was introduced and I was in the notch. A medial portal was made and shaver was introduced and I could see the tip of the shaver and this was allowed to run, it started to clean out the knee. A total of 12 L would be used. From there, I was able to come over the top of the knee with the knee in full extension again into the pouch to clean out the pouch and then follow the shaver down into the medial gutter and then clean around the edge of the tibial component and then come up into the notch. About [address] L was used this way and then the scope switched into the medial portal and again shaver was brought up into the pouch and then this way I could easily come down into the lateral portal and debride quite a bit and then come around and up and into the notch. 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 There was still quite a bit left as there were areas that I could not reach. After 12 L; however, the knee was completely clean and clear. All instrumentation was removed and pictures had been taken. Skin on the portal sites was closed using 4-0 nylon and a 2-0 Prolene was used as a deeper retention stitch so that he would not just continuously drain and form a chronic sinus. Sterile dressing and a Cryo/Cuff were applied in the OR. The patient was then extubated in the OR and was stable on transfer to the recovery room. [id number]/[facility] #: [id number] BLAYEN
[2017-11-22] MEDS: NS 0.9% 1000 ML* 1,000 ML IV SCH (00:11)
[2017-11-22] MEDS: Cefepime 1 GM in Dextrose(*) 1 GM/50 ML BAG IV SCH (00:15)
[2017-11-22] MEDS ORDERED: CMCS:Saliva Substitute (NF) 1 SPRAY BTL MT PRN (00:41)
[2017-11-22] MEDS: oxyCODONE/Acetamin 5/325 MG* TAB PO PRN ×2 (04:19→16:31)
[2017-11-22] MEDS: Levothyroxine TAB* 25 MCG TAB PO SCH (04:58)
[2017-11-22 06:22] LABS: Hematocrit 35 % (42-52); Hemoglobin 11.7 g/dl (14.0-18.0); Mean Corpuscular HGB Conc 34 g/dl (31-36); Mean Corpuscular Hemoglobin 30 pg (27-31); Mean Corpuscular Volume 89 fL (80-94); Mean Platelet Volume 8.6 um3 (7.4-10.4); Platelet Count 144 10^3/ul (150-450); Red Blood Count 3.93 10^6/ul (4.00-5.40); Red Cell Distribution Width 14 % (10.5-15); White Blood Count 28.6 10^3/ul (3.5-10.8)
[2017-11-22 06:28] LABS: ABS Basophils 0 10^3/ul (0-0.2); ABS Eosinophils 0 10^3/ul (0-0.6); ABS Lymphocytes 0.6 10^3/ul (1.0-4.8); ABS Neutrophils 25.9 10^3/ul (1.5-7.7); ABS Nucleated RBC 0 10^3/ul; Eosinophil % 0 % (0-6); Lymphocyte % 2.2 % (25-47); Nucleated Red Blood Cells % 0
[2017-11-22 06:39] LABS: EGFR Non-African American 88.4 (>60)
--- NOTE | 2017-11-22 08:13 | PN ---
Progress Note - Progress Note Date of Service: 11/22/17 SOAP: Subjective: 72 yo male, presented Wednesday with recurrent right knee pain. When I had seen him, more tender over the tibia. ED had aspriated the knee and came out with no fluid, still sent for cx/sens.I had seen him that afternoon and he could straight leg raise and had more tenderness over the proximal tibia where he has some x-ray changes. I believed he had more of an osteomyelitis, but the next day despite abx his WBC count worsened and he continued to have spiking temps and rigors. His pain also had increased. He was taken to the OR and I saw he now had an effusion of the knee joint. I aspirated that first and it did not look like a sympathetic effusion, but rather an infection. I still tried to debride the tibia, but the bone and tissues there were pristine. I then did a wash out of the knee joint. He felt better that evening and this morning he reports the is doing much better. He has been OOB and demonstrates by doing a SLR. Objective: VSS- afebrile since surgery. WBC count still high at 28.6. Dressing C/D/I. Easily lifts leg and moves ankle. Assessment: Infection right TKA Plan: He had pain and swelling in August and was given a knee sleeve. Likely that was the start of the infection. [facility] knows [facility] could be [facility] here if he needed it and we will continue abx. Oral for suppression can be used and he will need to talk with the [facility] the [facility] about [facility] versus suppression.
[2017-11-22] MEDS: Vitamin THERAPEUTIC TAB PO SCH (09:44)
[2017-11-22] MEDS: RiFAMPin CAP* 300 MG CAP PO SCH (09:44)
--- NOTE | 2017-11-22 10:24 | PN ---
Subjective Date of Service: 11/22/17 Interval History: As per d/w RN , r post op knee wound bled and was re-wrapped this AM. Pt ambulated with PT and did very well, still needs assist with ambulation though. Very SOB with exercise and hypoxemic (IVF discontinued) Objective Active Medications: Acetaminophen (Tylenol Tab*) 650 mg PO Q4H PRN PRN Reason: FEVER/PAIN Last Admin: 11/21/17 20:00 Dose: 650 mg Atorvastatin Calcium (Lipitor*) 10 mg PO 1700 [facility] Last Admin: 11/21/17 18:24 Dose: 10 mg Cyclobenzaprine HCl (Flexeril Tab*) 10 mg PO TID PRN PRN Reason: SPASMS - MUSCLE Last Admin: 11/21/17 07:43 Dose: 10 mg Cefepime HCl (Maxipime 1 Gm In Dextrose Duplex (*)) 1 gm in 50 mls @ 100 mls/ hr IV Q12H [facility] Last Admin: 11/22/17 00:15 Dose: 100 mls/hr Levalbuterol HCl (Xopenex 0.63mg/3ml Neb*) 0.63 mg INH ONCE PRN PRN Reason: SOB/WHEEZING Stop: 11/22/17 14:49 Last Admin: 11/21/17 14:55 Dose: 0.63 mg Levothyroxine Sodium (Synthroid Tab*) 25 mcg PO DAILY@0600 [facility] Last Admin: 11/22/17 04:58 Dose: 25 mcg Morphine Sulfate (Morphine Vial*) 2 mg IV Q4H PRN PRN Reason: PAIN - MILD Last Admin: 11/21/17 07:44 Dose: 2 mg Multivitamins (Theragran Tab*) 1 tab PO DAILY [facility] Last Admin: 11/22/17 09:44 Dose: 1 tab Ondansetron HCl (Zofran Inj*) 4 mg IV Q4H PRN PRN Reason: NAUSEA/VOMITING Oxycodone/Acetaminophen (Percocet 5/325 Tab*) 1 tab PO Q4H PRN PRN Reason: PAIN - MILD TO MODERATE Last Admin: 11/20/17 18:12 Dose: 1 tab Oxycodone/Acetaminophen (Percocet 5/325 Tab*) 2 tab PO Q4H PRN PRN Reason: PAIN - MODERATE TO SEVERE Last Admin: 11/22/17 04:19 Dose: 2 tab Rifampin (Rifampin Cap*) 300 mg PO BID [facility] Last Admin: 11/22/17 09:44 Dose: 300 mg Saliva Substitute (Biotene Moisturizing Mouth (Nf)) 1 spray MT Q4H PRN; Protocol PRN Reason: dry mouth Temazepam (Restoril Cap*) 15 mg PO BEDTIME [facility] Last Admin: 11/21/17 20:53 Dose: 15 mg Vital Signs - 8 hr 11/22/17 11/22/17 11/22/17 03:00 04:19 04:35 Temperature 98.7 F Pulse Rate 89 78 Respiratory 20 22 Rate Blood Pressure 120/70 (mmHg) O2 Sat by Pulse 85 93 Oximetry 11/22/17 07:22 Temperature 98.6 F Pulse Rate 66 Respiratory 18 Rate Blood Pressure 116/57 (mmHg) O2 Sat by Pulse 91 Oximetry Oxygen Devices in Use Now: Nasal Cannula Appearance: 72 yo M in nAD, aAOx3 Eyes: No Scleral Icterus, PERRLA Ears/Nose/Mouth/Throat: NL Teeth, Lips, Gums, Mucous Membranes Moist Neck: NL Appearance and Movements; NL JVP, Trachea Midline Respiratory: Symmetrical Chest Expansion and Respiratory Effort, - - faint bibasiliar crackles Cardiovascular: NL Sounds; No Murmurs; No JVD, RRR Abdominal: NL Sounds; No Tenderness; No Distention Lymphatic: No Cervical Adenopathy Extremities: No Clubbing, Cyanosis, - - mild R leg edema R knee in cryo unit, incision not inspected Skin: No Rash or Ulcers, No Nodules or Sclerosis Neurological: Alert and Oriented x 3, NL Muscle Strength and Tone Result Diagrams: 11/22/17 05:37 11/22/17 05:37 Additional Lab and Data: Lab Results 11/20/17 Range/Units 11:57 WBC 25.9 H (3.5-10.8) 10^3/ul RBC 4.38 (4.00-5.40) 10^6/ul Hgb 13.1 L (14.0-18.0) g/dl Hct 39 L (42-52) % MCV 88 (80-94) fL MCH 30 (27-31) pg MCHC 34 (31-36) g/dl RDW 13 (10.5-15) % Plt Count 179 (150-450) 10^3/ul MPV 7.8 (7.4-10.4) um3 Neut % (Auto) Pending Lymph % (Auto) Pending [place] % (Auto) Pending Eos % (Auto) Pending Baso % (Auto) Pending Absolute Neuts (auto) Pending Absolute Lymphs (auto) Pending Absolute Monos (auto) Pending Absolute Eos (auto) Pending Absolute Basos (auto) Pending Absolute Nucleated RBC Pending Nucleated RBC % Pending ESR Pending Microbiology and Other Data: Microbiology 11/20/17 11:57 Anaerobic Blood Culture - Preliminary Blood Venous 11/20/17 14:30 Gram Stain - Final Leg Right Assess/Plan/Problems-Billing Assessment: 72 yo M with h/o r knee replacement and revision, as well as dyslipidemia presents with R knee pain and possible diagnosis of R tibia osteomyelitis - Patient Problems (1) Osteomyelitis Comment: Sepsic joint (prosthetic)-MSSSA infection. S/p wash out by Dr. Herndon on 11/21/[address] Haas's recommendations, cont Cefepime/Rimfampin EDER and repeat blood cx scheduled for tomorrow Leukocytosis still significant , but clinically pt is much better. Pain in R knee resolved and pt is able to ambulate today (2) Hypoxemia Comment: Due to a combination of post op atelectasis and mild fluid overload. D/ c'd IVF start IC cont oxygen (3) DVT prophylaxis Comment: HSQ held due to bleeding from wound today. SCD's Status and Disposition: inpatient
[2017-11-22] MEDS ORDERED: Vancomycin Trough Check NOTE FOLLOW UP ONE (10:30)
[2017-11-22] MEDS: ceFAZolin 2 GM PREMIX (*) 2 GM/50 ML BAG IVPB SCH ×2 (12:49→19:36)
--- NOTE | 2017-11-22 13:16 | CONS ---
CONSULTATION REPORT: DATE OF CONSULT: 11/22/17 REQUESTING PHYSICIAN: Dr. lAvarez. CONSULTING SERVICE: Infectious disease. REASON FOR CONSULT: Infected prosthetic right knee. IMPRESSION: 1. 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 2. He has had increasing right knee symptoms for about the last 3 months, so I suspect that was all due to this infection. He has had a arthroscopic washout. This was already a revised knee to begin with. I discussed with him the two main options are a surgery to remove the whole knee, have a couple of IV antibiotics, and a consideration of reimplanting a knee joint. However, because he has already had 1 revision that it was complicated by a fracture of the tibia, I think that will be a high risk procedure that may lead to amputation if it fails. The alternative is follow the knee here, another washout if needed if he is not making progress, followed by long-term IV antibiotics and then lifelong suppressive antibiotic therapy. It is not a guarantee that his knee will remain asymptomatic, but there is a reasonable chance of it. 3. Osteoarthritis status post bilateral knee arthroplasties. 4. Hyperlipidemia. RECOMMENDATIONS: We will recheck the blood cultures tomorrow. We will stop the cefepime, start Ancef 2 g IV every 8 hours for MSSA. He will need a transesophageal echocardiogram. I will hold off on the rifampin for now which we will reinitiate once he has had clearance of his bacteremia and more significant reduction in the bacterial burden. There is at least theoretical risk of developing resistance to rifampin the setting of high bacterial burden. A chest x-ray PA and lateral as he has had dyspnea and hypoxemia with rales at the bases, question pulmonary edema. HISTORY OF PRESENT ILLNESS: This is a 72-year-old male with history of two right knee arthroplasties, admitted with right knee pain and swelling. Over about the last three months, he has had gradual increase in right knee symptoms that included pain that was intermittent; sometimes with weightbearing, sometimes more with palpation or rest. He has had no fevers or chills. Then overnight the night of admission, he had the sudden onset of severe debilitating right knee pain when he got out of bed to try and stand. He came to the hospital on the 11/20/17 with a withe count of 25,000, right knee pain and swelling, Staph aureus in the blood. He was taken to the operating room yesterday for arthroscopic washout which he tolerated well. He has had improvement in his right knee pain today. He has no other joint pain and no back pain. His left knee is not bothering him. Today, he has been able to walk around the unit. He did develop dyspnea and oxygen saturation in the low 90s while doing that which is new for him. He does not have a cough or chest pain. PAST MEDICAL HISTORY: 1. Hypothyroidism. 2. Hyperlipidemia. 3. Osteoarthritis, status post left knee arthroplasty and right knee arthroplasty x2. The second time complicated by tibial fracture, which healed on its own. 4. Status post left shoulder surgery and carpal tunnel release. MEDICATIONS: 1. Tylenol. 2. Lipitor. 3. Flexeril. 4. Cefepime. 5. Levalbuterol. 6. Rifampin. 7. Levothyroxine. 8. Temazepam as needed. ALLERGIES: LATEX and NEOPRENE. FAMILY HISTORY: No recurrent infections. The patient is adopted. SOCIAL HISTORY: He lives in [place]. He has no travel or sick contacts. REVIEW OF SYSTEMS: All negative to 14-point review of systems except as noted above in the history of present illness. PHYSICAL EXAM: Vital Signs: Temperature 37, heart rate 66, respiratory rate 18 , blood pressure 116/57, oxygen saturation 91% on 2 liters. General: He is awake, not in distress. Neurologic: He is oriented x3, follows all commands, can move all extremities. HEENT: There is no conjunctival hemorrhage. Oropharynx without lesions. Neck: Supple without mass. Lymph nodes: There is no cervical, supraclavicular, inguinal, axillary, or epitrochlear lymphadenopathy. Heart: Regular, rate, and rhythm without murmurs, rubs, or gallops. Lungs: Have rales at the bases bilaterally without wheeze or rhonchi. Abdomen: Soft, nontender, and nondistended. There is bowel sounds present. Skin: There is no rash or splinter hemorrhages. Musculoskeletal: Right knee is wrapped. In the left knee there is no warmth or effusion. There is no spine tenderness to palpation. There is no other joint synovitis. DIAGNOSTIC STUDIES/LAB DATA: Creatinine 0.8, CRP 240, white blood cell count 28 , hemoglobin 11, platelets 144. Please see impressions and recommendations outlined above, which I have discussed with Dr. Alvarez. Thanks for asking me to see Mr. rS in consultation. [id number]/[facility] #: [id number] BLAYNE
--- NOTE | 2017-11-22 13:26 | RAD ---
HISTORY: dyspnea ?pulmonary edema COMPARISONS: November 20, 2017 VIEWS: 2: Frontal and lateral views of the chest. FINDINGS: CARDIOMEDIASTINAL SILHOUETTE: The cardiomediastinal silhouette is normal. VANESSA: The vanessa are normal. PLEURA: The costophrenic angles are sharp. No pleural abnormalities are noted. LUNG PARENCHYMA: There is a diffuse pattern of reticular opacification with prominence of the central pulmonary vasculature. ABDOMEN: The upper abdomen is clear. There is no subphrenic gas. BONES AND SOFT TISSUES: No bone or soft tissue abnormalities are noted. OTHER: None. IMPRESSION: PULMONARY INTERSTITIAL EDEMA
[2017-11-22] MEDS ORDERED: Furosemide IV* 10 MG/ML 2 ML VIAL (20 MG) IV ONE (14:07)
[2017-11-22] MEDS: Atorvastatin* 10 MG TAB PO SCH (16:31)
[2017-11-22] MEDS: Acetaminophen TAB* 325 MG PO PRN (20:44)
[2017-11-22] MEDS: Temazepam CAP* 15 MG PO SCH (21:42)
[2017-11-23] MEDS ORDERED: Furosemide IV* 10 MG/ML 10 ML VIAL (100 MG) IV ONE (01:31)
[2017-11-23] MEDS ORDERED: Pantoprazole IV* 40 MG IV ONE (01:31)
[2017-11-23] MEDS: Morphine VIAL* 4 MG/ML VIAL (1 ml vial) IV PRN (02:40)
[2017-11-23] MEDS: ceFAZolin 2 GM PREMIX (*) 2 GM/50 ML BAG IVPB SCH ×3 (04:07→20:29)
[2017-11-23 05:58] LABS: Hematocrit 33 % (42-52); Hemoglobin 11.5 g/dl (14.0-18.0); Mean Corpuscular HGB Conc 35 g/dl (31-36); Mean Corpuscular Hemoglobin 30 pg (27-31); Mean Corpuscular Volume 87 fL (80-94); Mean Platelet Volume 8.2 um3 (7.4-10.4); Platelet Count 175 10^3/ul (150-450); Red Blood Count 3.83 10^6/ul (4.00-5.40); Red Cell Distribution Width 14 % (10.5-15); White Blood Count 22.2 10^3/ul (3.5-10.8)
[2017-11-23 05:59] LABS: ABS Basophils 0 10^3/ul (0-0.2); ABS Eosinophils 0 10^3/ul (0-0.6); ABS Lymphocytes 0.8 10^3/ul (1.0-4.8); ABS Neutrophils 19.3 10^3/ul (1.5-7.7); ABS Nucleated RBC 0 10^3/ul; Eosinophil % 0.1 % (0-6); Lymphocyte % 3.6 % (25-47); Nucleated Red Blood Cells % 0
[2017-11-23] MEDS: Levothyroxine TAB* 25 MCG TAB PO SCH (06:06)
[2017-11-23] MEDS: Acetaminophen TAB* 325 MG PO PRN ×2 (08:21→23:51)
[2017-11-23] MEDS: Vitamin THERAPEUTIC TAB PO SCH (08:21)
[2017-11-23] MEDS ORDERED: Furosemide IV* 10 MG/ML 2 ML VIAL (20 MG) IV ONE ×2 (08:47→13:42)
[2017-11-23] MEDS ORDERED: fentaNYL* 50 MCG/ML 2 ML VIAL (100 MCG VIAL) ONE (09:57)
[2017-11-23] MEDS ORDERED: Lidocaine 2% VISCOUS* 15 ML UDC ONE (09:57)
[2017-11-23] MEDS ORDERED: Flumazenil* 0.1 MG/ML 5 ML MDV ONE (09:57)
[2017-11-23] MEDS ORDERED: Midazolam* 1 MG/ML 10 ML VIAL (10 MG) ONE (09:57)
[2017-11-23] MEDS ORDERED: Naloxone* 0.4 MG/ML 1 ML VIAL ONE (09:57)
[2017-11-23] MEDS: KCL 20 MEQ/100 ML IVPREMIX* 20 MEQ/100 ML BAG IV SCH ×2 (11:26→15:34)
--- NOTE | 2017-11-23 12:44 | PN ---
Progress Note - Progress Note Date of Service: 11/23/17 SOAP: Subjective: []Patient seen at bedside. His pain is well controlled and he denies feeling of fever or chills. Objective: [] Vital Signs Temp 100.8 F 11/23/17 07:19 Pulse 86 11/23/17 07:19 Resp 20 11/23/17 07:19 BP 140/92 11/23/17 11:23 Pulse Ox 93 11/23/17 07:19 Intake & Output 11/22/17 11/23/17 11/23/17 18:59 06:59 18:59 Intake Total 570 846 0 Output Total 3050 Balance 570 -2204 0 Intake: IV Fluids 90 81 NS (0.9%) 40 18 cefazolin 50 63 Oral 480 765 0 Output: Urine 3050 Other: Estimated Void Medium Large # Bowel Movements 1 0 Estimated Stool Amount Small # Voids 1 0 Laboratory Last Values WBC 22.2 10^3/ul (3.5-10.8) H 11/23/17 05:44 RBC 3.83 10^6/ul (4.00-5.40) L 11/23/17 05:44 Hgb 11.5 g/dl (14.0-18.0) L 11/23/17 05:44 Hct 33 % (42-52) L 11/23/17 05:44 MCV 87 fL (80-94) 11/23/17 05:44 MCH 30 pg (27-31) 11/23/17 05:44 MCHC 35 g/dl (31-36) 11/23/17 05:44 RDW 14 % (10.5-15) 11/23/17 05:44 Plt Count 175 10^3/ul (150-450) 11/23/17 05:44 MPV 8.2 um3 (7.4-10.4) 11/23/17 05:44 Neut % (Auto) 87.1 % (38-83) H 11/23/17 05:44 Lymph % (Auto) 3.6 % (25-47) L 11/23/17 05:44 [place] % (Auto) 9.1 % (0-7) H 11/23/17 05:44 Eos % (Auto) 0.1 % (0-6) 11/23/17 05:44 Baso % (Auto) 0.1 % (0-2) 11/23/17 05:44 Absolute Neuts (auto) 19.3 10^3/ul (1.5-7.7) H 11/23/17 05:44 Absolute Lymphs (auto) 0.8 10^3/ul (1.0-4.8) L 11/23/17 05:44 Absolute Monos (auto) 2.0 10^3/ul (0-0.8) H 11/23/17 05:44 Absolute Eos (auto) 0 10^3/ul (0-0.6) 11/23/17 05:44 Absolute Basos (auto) 0 10^3/ul (0-0.2) 11/23/17 05:44 Absolute Nucleated RBC 0 10^3/ul 11/23/17 05:44 Nucleated RBC % 0 11/23/17 05:44 ESR 13 mm/Hr (0-40) 11/20/17 11:57 INR (Anticoag Therapy) 1.18 (0.77-1.02) H 11/20/17 11:57 APTT 29.8 seconds (26.0-36.3) 11/20/17 11:57 Sodium 140 mmol/L (135-145) 11/23/17 05:44 Potassium 3.3 mmol/L (3.5-5.0) L 11/23/17 05:44 Chloride 104 mmol/L (101-111) 11/23/17 05:44 Carbon Dioxide 25 mmol/L (22-32) 11/23/17 05:44 Anion Gap 11 mmol/L (2-11) 11/23/17 05:44 BUN 22 mg/dL (6-24) 11/23/17 05:44 Creatinine 0.87 mg/dL (0.67-1.17) 11/23/17 05:44 Est GFR ( Amer) 104.1 (>60) 11/23/17 05:44 Est GFR (Non-Af Amer) 86.0 (>60) 11/23/17 05:44 BUN/Creatinine Ratio 25.3 (8-20) H 11/23/17 05:44 Glucose 101 mg/dL (70-100) H 11/23/17 05:44 Lactic Acid 1.5 mmol/L (0.5-2.0) 11/20/17 20:23 Calcium 8.5 mg/dL (8.6-10.3) L 11/23/17 05:44 Total Bilirubin 1.30 mg/dL (0.2-1.0) H 11/20/17 11:57 AST 19 U/L (13-39) 11/20/17 11:57 ALT 24 U/L (7-52) 11/20/17 11:57 Alkaline Phosphatase 58 U/L (34-104) 11/20/17 11:57 Troponin I 0.01 ng/mL (<0.04) 11/20/17 11:57 C-Reactive Protein 239.63 mg/L (<8.01) H 11/21/17 07:16 Total Protein 7.3 g/dL (6.4-8.9) 11/20/17 11:57 Albumin 4.4 g/dL (3.2-5.2) 11/20/17 11:57 Globulin 2.9 g/dL (2-4) 11/20/17 11:57 Albumin/Globulin Ratio 1.5 (1-3) 11/20/17 11:57 General: Well appearing, NAD RLE: Dressing changed, incision with well approximated wound edges. Knee without erythema or edema. Mild thin brown discharge though no purulence. BL calves supple and nontender without erythema, edema or palpable cords. Assessment: []Infection right TKA Plan: WBAT IV abx per ID: ancef 2 g IV Q 8 hours. Needs EDER WBC trending down
--- NOTE | 2017-11-23 13:52 | PN ---
Subjective Date of Service: 11/23/17 Interval History: Pt was in significant SOB last night. Received 2 doses of Lasix 20 mg IV. Now feels better, but still significant 02 requirement. Unable to have EDER due to that Objective Active Medications: Acetaminophen (Tylenol Tab*) 650 mg PO Q4H PRN PRN Reason: FEVER/PAIN Last Admin: 11/23/17 08:21 Dose: 650 mg Atorvastatin Calcium (Lipitor*) 10 mg PO 1700 [facility] Last Admin: 11/22/17 16:31 Dose: 10 mg Cyclobenzaprine HCl (Flexeril Tab*) 10 mg PO TID PRN PRN Reason: SPASMS - MUSCLE Last Admin: 11/21/17 07:43 Dose: 10 mg Cefazolin Sodium/Dextrose (Kefzol 2 Gm Premix(*)) 2 gm in 50 mls @ 100 mls/hr IVPB Q8H [facility] Last Admin: 11/23/17 04:07 Dose: 100 mls/hr Levothyroxine Sodium (Synthroid Tab*) 25 mcg PO DAILY@0600 [facility] Last Admin: 11/23/17 06:06 Dose: 25 mcg Morphine Sulfate (Morphine Vial*) 2 mg IV Q4H PRN PRN Reason: PAIN - MILD Last Admin: 11/23/17 02:40 Dose: 2 mg Multivitamins (Theragran Tab*) 1 tab PO DAILY [facility] Last Admin: 11/23/17 08:21 Dose: 1 tab Ondansetron HCl (Zofran Inj*) 4 mg IV Q4H PRN PRN Reason: NAUSEA/VOMITING Oxycodone/Acetaminophen (Percocet 5/325 Tab*) 1 tab PO Q4H PRN PRN Reason: PAIN - MILD TO MODERATE Last Admin: 11/22/17 16:31 Dose: 1 tab Oxycodone/Acetaminophen (Percocet 5/325 Tab*) 2 tab PO Q4H PRN PRN Reason: PAIN - MODERATE TO SEVERE Last Admin: 11/22/17 04:19 Dose: 2 tab Saliva Substitute (Biotene Moisturizing Mouth (Nf)) 1 spray MT Q4H PRN; Protocol PRN Reason: dry mouth Temazepam (Restoril Cap*) 15 mg PO BEDTIME [facility] Last Admin: 11/22/17 21:42 Dose: 15 mg Vital Signs - 8 hr 11/23/17 11/23/17 07:19 11:23 Temperature 100.8 F Pulse Rate 86 Respiratory 20 Rate Blood Pressure 136/58 140/92 (mmHg) O2 Sat by Pulse 93 Oximetry Oxygen Devices in Use Now: Nasal Cannula Appearance: 72 yo M in nAD, aAOx3 Eyes: No Scleral Icterus, PERRLA Ears/Nose/Mouth/Throat: NL Teeth, Lips, Gums, Mucous Membranes Moist Neck: NL Appearance and Movements; NL JVP, Trachea Midline Respiratory: Symmetrical Chest Expansion and Respiratory Effort, Clear to Auscultation Cardiovascular: NL Sounds; No Murmurs; No JVD, RRR Abdominal: NL Sounds; No Tenderness; No Distention Lymphatic: No Cervical Adenopathy Extremities: No Clubbing, Cyanosis, - - r leg with mild edema Skin: No Nodules or Sclerosis, - - R knee post opmdressings not removed Neurological: Alert and Oriented x 3, NL Muscle Strength and Tone Result Diagrams: 11/23/17 05:44 11/23/17 05:44 Additional Lab and Data: Lab Results 11/20/17 Range/Units 11:57 WBC 25.9 H (3.5-10.8) 10^3/ul RBC 4.38 (4.00-5.40) 10^6/ul Hgb 13.1 L (14.0-18.0) g/dl Hct 39 L (42-52) % MCV 88 (80-94) fL MCH 30 (27-31) pg MCHC 34 (31-36) g/dl RDW 13 (10.5-15) % Plt Count 179 (150-450) 10^3/ul MPV 7.8 (7.4-10.4) um3 Neut % (Auto) Pending Lymph % (Auto) Pending [place] % (Auto) Pending Eos % (Auto) Pending Baso % (Auto) Pending Absolute Neuts (auto) Pending Absolute Lymphs (auto) Pending Absolute Monos (auto) Pending Absolute Eos (auto) Pending Absolute Basos (auto) Pending Absolute Nucleated RBC Pending Nucleated RBC % Pending ESR Pending Microbiology and Other Data: Microbiology 11/20/17 11:57 Anaerobic Blood Culture - Preliminary Blood Venous 11/20/17 14:30 Gram Stain - Final Leg Right Assess/Plan/Problems-Billing Assessment: 72 yo M with h/o r knee replacement and revision, as well as dyslipidemia presents with R knee pain and possible diagnosis of R tibia osteomyelitis - Patient Problems (1) Osteomyelitis Comment: Sepsic joint (prosthetic)-MSSSA infection. S/p wash out by Dr. Herndon on 11/21/[address] Haas's recommendations: on Cefazolin EDER has to be postponed till pt's resp status improves. Repeat blood cx from 03/03 pending (2) Hypoxemia Comment: Due to a combination of post op atelectasis and mild fluid overload.cont intermittent IV Lasix. cont incentive spirometry cont oxygen (3) DVT prophylaxis Comment: HSQ Status and Disposition: inpatient
[2017-11-23] MEDS: Heparin VIAL(*) 5000 UNITS/ML VIAL (FIVE THOUSAND) SUBCUT SCH ×2 (15:34→21:40)
--- NOTE | 2017-11-23 17:12 | PN ---
Progress Note - Progress Note Date of Service: 11/23/17 SOAP: Subjective: 72 yo male, presented Wednesday with right knee pain. Aspiration of the knee Wednesday dry, but still had complaints and rigors and underwent an InD and arthroscopic washout Wednesday. Fevers gone, WBC improving. Did have some drainage from the knee yesterday when up and about, but typical for a knee arthroscopy. Reports knee still doing this evening, as he can bend better and be on his feet. Breahing easier as well. Objective: He is still on O2 via NC. Knee dressing changed earlier, currently C/D/I. Can SLR and bend knee. Assessment: Infected right TKA Plan: He is improving. I do not expect to come back for a repeat washout, as clearly doing better. Continue abx [facility] or can follow up in the office for suture removal while [facility] tx [facility] the [facility].
[2017-11-23] MEDS: Atorvastatin* 10 MG TAB PO SCH (17:54)
[2017-11-23] MEDS: oxyCODONE/Acetamin 5/325 MG* TAB PO PRN (17:54)
[2017-11-23] MEDS: Temazepam CAP* 15 MG PO SCH (21:40)
[2017-11-24] MEDS: ceFAZolin 2 GM PREMIX (*) 2 GM/50 ML BAG IVPB SCH ×2 (03:22→13:35)
[2017-11-24] MEDS: Heparin VIAL(*) 5000 UNITS/ML VIAL (FIVE THOUSAND) SUBCUT SCH (05:42)
[2017-11-24] MEDS: Levothyroxine TAB* 25 MCG TAB PO SCH (05:42)
[2017-11-24] MEDS: Acetaminophen TAB* 325 MG PO PRN ×2 (05:59→15:53)
[2017-11-24 06:57] LABS: EGFR Non-African American 102.1 (>60)
[2017-11-24] MEDS ORDERED: Potassium Chlor TAB* 20 MEQ TAB.ER PO ONE (09:05)
[2017-11-24] MEDS: oxyCODONE/Acetamin 5/325 MG* TAB PO PRN ×2 (09:18→13:44)
[2017-11-24] MEDS: Vitamin THERAPEUTIC TAB PO SCH (09:19)
--- NOTE | 2017-11-24 10:41 | PN ---
Progress Note - Progress Note Date of Service: 11/24/17 SOAP: Subjective: CC: fever HPI: 72 year old man with prosthetic right knee infection s/p arthroscopic I&D. Fever overnight, no rash, diarrhea or pain w urination. No other joint or spine pain. Appetite is ok. Right knee pain about the same, slightly increased with weight bearing. Objective: Vital Signs Temp 37.6 C 11/24/17 07:36 Pulse 65 11/24/17 07:36 Resp 18 11/24/17 09:18 BP 131/68 11/24/17 07:36 Pulse Ox 98 11/24/17 08:00 Intake & Output 11/23/17 11/24/17 11/24/17 18:59 06:59 18:59 Intake Total 480 480 350 Output Total 2049 300 Balance -1570 180 350 Weight 182 lb 3.2 oz Intake: Oral 480 480 350 Output: Urine 2049 300 Other: Estimated Void Medium Date of Last Bowel unknown Movement # Bowel Movements 0 # Voids 0 1 Gen:awake, no distress HEENT: no thrush Heart:RRR no murmur Lungs:CTA BL Abd:+BS NTND soft Skin: no rash MSK: R knee serous drainage from port incisions; mild edema. No spine tenderness or other joint tenderness Laboratory Results - last 24 hr 11/24/17 11/24/17 06:16 06:16 WBC 15.7 H Sodium 139 Potassium 3.3 L Chloride 101 Carbon Dioxide 29 Anion Gap 9 BUN 17 Creatinine 0.75 Est GFR ( Amer) 123.5 Est GFR (Non-Af Amer) 102.1 BUN/Creatinine Ratio 22.7 H Glucose 96 Calcium 8.4 L C-Reactive Protein 291.63 H Microbiology 11/21/17 13:31 Joint Fluid(Synovial) - Knee Right Gram Stain - Final 11/21/17 13:31 Joint Fluid(Synovial) - Knee Right Body Fluid Culture - Preliminary Staphylococcus Aureus 11/21/17 13:31 Joint Fluid(Synovial) - Knee Right Skin and Soft Tissue MRSA/ MSSA (PCR - Final Mrsa Negative S.aureus Positive 11/23/17 05:44 Blood Venous Aerobic Blood Culture - Preliminary No Growth Day 1 11/23/17 05:44 Blood Venous Anaerobic Blood Culture - Preliminary No Growth Day 1 Assessment: 1. MSSA prosthetic right knee infection s/p arthroscopic I&D 2. ongoing fever and increasing CRP due to #1 3. MSSA bacteremia, cleared; EDER pending Plan: 1. 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 Dicsussed with Dr Alvarez
--- NOTE | 2017-11-24 10:47 | PN ---
Subjective Interval History: Pt feels " under the weather today". Was febrile last night, today feels tired and weak, denies SOB Objective Active Medications: Acetaminophen (Tylenol Tab*) 650 mg PO Q4H PRN PRN Reason: FEVER/PAIN Last Admin: 11/24/17 05:59 Dose: 650 mg Atorvastatin Calcium (Lipitor*) 10 mg PO 1700 [facility] Last Admin: 11/23/17 17:54 Dose: 10 mg Cyclobenzaprine HCl (Flexeril Tab*) 10 mg PO TID PRN PRN Reason: SPASMS - MUSCLE Last Admin: 11/21/17 07:43 Dose: 10 mg Heparin Sodium (Porcine) (Heparin Vial(*)) 5,000 units SUBCUT Q8HR [facility] Cefazolin Sodium/Dextrose (Kefzol 2 Gm Premix(*)) 2 gm in 50 mls @ 100 mls/hr IVPB Q8H [facility] Last Admin: 11/24/17 03:22 Dose: 100 mls/hr Levothyroxine Sodium (Synthroid Tab*) 25 mcg PO DAILY@0600 [facility] Last Admin: 11/24/17 05:42 Dose: 25 mcg Morphine Sulfate (Morphine Vial*) 2 mg IV Q4H PRN PRN Reason: PAIN - MILD Last Admin: 11/23/17 02:40 Dose: 2 mg Multivitamins (Theragran Tab*) 1 tab PO DAILY [facility] Last Admin: 11/24/17 09:19 Dose: 1 tab Ondansetron HCl (Zofran Inj*) 4 mg IV Q4H PRN PRN Reason: NAUSEA/VOMITING Oxycodone/Acetaminophen (Percocet 5/325 Tab*) 1 tab PO Q4H PRN PRN Reason: PAIN - MILD TO MODERATE Last Admin: 11/24/17 09:18 Dose: 1 tab Oxycodone/Acetaminophen (Percocet 5/325 Tab*) 2 tab PO Q4H PRN PRN Reason: PAIN - MODERATE TO SEVERE Last Admin: 11/22/17 04:19 Dose: 2 tab Saliva Substitute (Biotene Moisturizing Mouth (Nf)) 1 spray MT Q4H PRN; Protocol PRN Reason: dry mouth Temazepam (Restoril Cap*) 15 mg PO BEDTIME [facility] Last Admin: 11/23/17 21:40 Dose: 15 mg Vital Signs - 8 hr 11/24/17 11/24/17 11/24/17 03:31 07:36 08:00 Temperature 99.0 F 99.7 F Pulse Rate 65 65 Respiratory 20 16 Rate Blood Pressure 123/55 131/68 (mmHg) O2 Sat by Pulse 98 98 98 Oximetry 11/24/17 09:18 Temperature Pulse Rate Respiratory 18 Rate Blood Pressure (mmHg) O2 Sat by Pulse Oximetry Oxygen Devices in Use Now: Nasal Cannula Appearance: 72 yo M in nAD, aAOx3 Eyes: No Scleral Icterus, PERRLA Ears/Nose/Mouth/Throat: NL Teeth, Lips, Gums, Mucous Membranes Moist Neck: NL Appearance and Movements; NL JVP, Trachea Midline Respiratory: Symmetrical Chest Expansion and Respiratory Effort, Clear to Auscultation Cardiovascular: NL Sounds; No Murmurs; No JVD, RRR Abdominal: NL Sounds; No Tenderness; No Distention Lymphatic: No Cervical Adenopathy Extremities: No Clubbing, Cyanosis, - - R leg edema noted, post op incisions not evaluated Skin: No Nodules or Sclerosis Neurological: Alert and Oriented x 3, NL Muscle Strength and Tone Result Diagrams: 11/24/17 06:16 11/24/17 06:16 Additional Lab and Data: Lab Results 11/20/17 Range/Units 11:57 WBC 25.9 H (3.5-10.8) 10^3/ul RBC 4.38 (4.00-5.40) 10^6/ul Hgb 13.1 L (14.0-18.0) g/dl Hct 39 L (42-52) % MCV 88 (80-94) fL MCH 30 (27-31) pg MCHC 34 (31-36) g/dl RDW 13 (10.5-15) % Plt Count 179 (150-450) 10^3/ul MPV 7.8 (7.4-10.4) um3 Neut % (Auto) Pending Lymph % (Auto) Pending [place] % (Auto) Pending Eos % (Auto) Pending Baso % (Auto) Pending Absolute Neuts (auto) Pending Absolute Lymphs (auto) Pending Absolute Monos (auto) Pending Absolute Eos (auto) Pending Absolute Basos (auto) Pending Absolute Nucleated RBC Pending Nucleated RBC % Pending ESR Pending Microbiology and Other Data: Microbiology 11/20/17 11:57 Anaerobic Blood Culture - Preliminary Blood Venous 11/20/17 14:30 Gram Stain - Final Leg Right Assess/Plan/Problems-Billing Assessment: 72 yo M with h/o r knee replacement and revision, as well as dyslipidemia presents with R knee pain and possible diagnosis of R tibia osteomyelitis - Patient Problems (1) Osteomyelitis Comment: Sepsic joint (prosthetic)-MSSA infection. S/p wash out by Dr. Herndon on 11/21/[address] Haas's recommendations: on Cefazolin Today worrisome fever and further elevation of CRP. D/w Dr. Monae who will see pt for possible repeat wash out EDER has to be postponed till tomorrow . Repeat blood cx from 11/23/17 NTD (2) Hypoxemia Comment: Due to a combination of post op atelectasis and mild fluid overload. Improving cont incentive spirometry cont oxygen (3) DVT prophylaxis Comment: HSQ Status and Disposition: inpatient
--- NOTE | 2017-11-24 12:09 | PN ---
Progress Note - Progress Note Date of Service: 11/24/17 SOAP: Subjective: [] Patient seen at bedside. He was walking with physical therapy before I entered the room. He states his right knee is more painful than yesterday. He has been febrile and his CRP has increased. Objective: [] Vital Signs Temp 99.4 F 11/24/17 11:03 Pulse 65 11/24/17 11:03 Resp 16 11/24/17 11:03 BP 115/56 11/24/17 11:03 Pulse Ox 96 11/24/17 11:03 Intake & Output 11/23/17 11/24/17 11/24/17 18:59 06:59 18:59 Intake Total 480 480 350 Output Total 0 300 Balance -1570 180 350 Weight 182 lb 3.2 oz Intake: Oral 480 480 350 Output: Urine 2049 300 Other: Estimated Void Medium Date of Last Bowel unknown Movement # Bowel Movements 0 # Voids 0 1 Laboratory Last Values WBC 15.7 10^3/ul (3.5-10.8) H 11/24/17 06:16 RBC 3.83 10^6/ul (4.00-5.40) L 11/23/17 05:44 Hgb 11.5 g/dl (14.0-18.0) L 11/23/17 05:44 Hct 33 % (42-52) L 11/23/17 05:44 MCV 87 fL (80-94) 11/23/17 05:44 MCH 30 pg (27-31) 11/23/17 05:44 MCHC 35 g/dl (31-36) 11/23/17 05:44 RDW 14 % (10.5-15) 11/23/17 05:44 Plt Count 175 10^3/ul (150-450) 11/23/17 05:44 MPV 8.2 um3 (7.4-10.4) 11/23/17 05:44 Neut % (Auto) 87.1 % (38-83) H 11/23/17 05:44 Lymph % (Auto) 3.6 % (25-47) L 11/23/17 05:44 [place] % (Auto) 9.1 % (0-7) H 11/23/17 05:44 Eos % (Auto) 0.1 % (0-6) 11/23/17 05:44 Baso % (Auto) 0.1 % (0-2) 11/23/17 05:44 Absolute Neuts (auto) 19.3 10^3/ul (1.5-7.7) H 11/23/17 05:44 Absolute Lymphs (auto) 0.8 10^3/ul (1.0-4.8) L 11/23/17 05:44 Absolute Monos (auto) 2.0 10^3/ul (0-0.8) H 11/23/17 05:44 Absolute Eos (auto) 0 10^3/ul (0-0.6) 11/23/17 05:44 Absolute Basos (auto) 0 10^3/ul (0-0.2) 11/23/17 05:44 Absolute Nucleated RBC 0 10^3/ul 11/23/17 05:44 Nucleated RBC % 0 11/23/17 05:44 ESR 13 mm/Hr (0-40) 11/20/17 11:57 INR (Anticoag Therapy) 1.18 (0.77-1.02) H 11/20/17 11:57 APTT 29.8 seconds (26.0-36.3) 11/20/17 11:57 Sodium 139 mmol/L (135-145) 11/24/17 06:16 Potassium 3.3 mmol/L (3.5-5.0) L 11/24/17 06:16 Chloride 101 mmol/L (101-111) 11/24/17 06:16 Carbon Dioxide 29 mmol/L (22-32) 11/24/17 06:16 Anion Gap 9 mmol/L (2-11) 11/24/17 06:16 BUN 17 mg/dL (6-24) 11/24/17 06:16 Creatinine 0.75 mg/dL (0.67-1.17) 11/24/17 06:16 Est GFR ( Amer) 123.5 (>60) 11/24/17 06:16 Est GFR (Non-Af Amer) 102.1 (>60) 11/24/17 06:16 BUN/Creatinine Ratio 22.7 (8-20) H 11/24/17 06:16 Glucose 96 mg/dL (70-100) 07/11/18 06:16 Lactic Acid 1.5 mmol/L (0.5-2.0) 11/20/17 20:23 Calcium 8.4 mg/dL (8.6-10.3) L 11/24/17 06:16 Total Bilirubin 1.30 mg/dL (0.2-1.0) H 11/20/17 11:57 AST 19 U/L (13-39) 11/20/17 11:57 ALT 24 U/L (7-52) 11/20/17 11:57 Alkaline Phosphatase 58 U/L (34-104) 11/20/17 11:57 Troponin I 0.01 ng/mL (<0.04) 11/20/17 11:57 C-Reactive Protein 291.63 mg/L (<8.01) H 11/24/17 06:16 Total Protein 7.3 g/dL (6.4-8.9) 11/20/17 11:57 Albumin 4.4 g/dL (3.2-5.2) 11/20/17 11:57 Globulin 2.9 g/dL (2-4) 11/20/17 11:57 Albumin/Globulin Ratio 1.5 (1-3) 11/20/17 11:57 General: NAD, does not appear sick at this time, carries on appropriate conversation. RLE: Dressing with large amount of brown murky drainage, with ROM port sites actively draining/ squirting. Incisions are intact without surrounding erythema. Knee is mildly warm and moderately edematous, knee is much more tender than yesterday. No AROM, PROM 10-60 degrees similar to yesterday. Assessment: []Infection right TKA Plan: WBAT IV abx per ID: ancef 2 g IV Q 8 hours. Needs EDER when available. WBC trending down, CRP trending up, febrile. Not yet appearing sick, will need to watch closely. If his vitals become unstable/ he appears sick we will wash him out right away prior to transfer. Otherwise her requires transfer to a facility that can better accommodate his needs. He needs washout at very least, likely removal of implants as well as IV antibiotics. Dr Monae has seen the patient and medicine is working to transfer the patient out to a facility that can better accommodate this need.
--- NOTE | 2017-11-24 12:41 | PN ---
Progress Note - Progress Note Date of Service: 11/24/17
--- NOTE | 2017-11-24 16:27 | TRS ---
CC: Zulema Jara NP; Dr. Claudio Herndon, Orthopedic Surgery; Dr. Monae, Orthopedic Surgery; Dr. Haas, Infectious Diseases; Dr. Javier; Dr. Martin * TRANSFER SUMMARY: DATE OF ADMISSION: 11/20/17 DATE OF TRANSFER: To [facility], 11/24/17. PRIMARY CARE PROVIDER: Zulema Jara NP, from the [facility]. REASON FOR TRANSFER: Right septic knee with infected hardware. The hardware is planned to be extracted and needs to washed out again. PRIMARY DIAGNOSIS: Ongoing hypoxemia due to fluid overload after intravenous fluid resuscitation for the patient's sepsis. The patient currently is on 2 to 4 L of oxygen continuously. SECONDARY DIAGNOSES: 1. History of hypothyroidism. 2. History of hyperlipidemia. 3. History of osteoarthritis, with 2 surgeries on the right knee, the last one was in 2012 at the [facility] in [place]. CURRENT MEDICATIONS: Include: 1. Flexeril 10 mg 3 times a day p.r.n. 2. Lipitor 10 mg daily. 3. Acetaminophen on a p.r.n. basis. 4. Heparin 5000 units subcutaneously every 8 hours for DVT prophylaxis. 5. Cefazolin 2 g IV every 8 hours. 6. Levothyroxine 25 mcg daily. 7. Morphine 2 mg every 4 hours p.r.n. IV. 8. Oxycodone with acetaminophen 5/325 one tablet every 4 hours p.r.n. 9. Potassium chloride 40 mEq once was given to the patient today. 10. Temazepam 15 mg at bedtime p.r.n. CONSULTATIONS DURING THE HOSPITAL STAY: Included Dr. Herndon, Dr. Monae from Orthopedic Surgery, as well as Dr. Haas, Infectious Diseases. LABORATORY DATA AND STUDIES PERFORMED DURING THE HOSPITAL STAY: Included: On 11/24/17, the patient's white blood cell count was 15.7. On 11/23/17, white blood cell count was 22.2, hemoglobin was 11.5, hematocrit of 33, and platelets of 175. On 11/24/17, sodium of 139, potassium of 3.3, chloride 101, carbon dioxide 29, BUN 17, creatinine 0.75. C-reactive protein was 291 on the day of transfer. Prior to transfer, the patient's C-reactive protein was 68 at admission, 11/20/17, and on 11/21/17, it was 239. Microbiology studies showed methicillin-sensitive Staphylococcus aureus in blood cultures at admission. The patient also had methicillin-sensitive Staphylococcus aureus from the washout of the wound in the right knee obtained on 11/21/17. Repeat blood cultures obtained on 11/23/17 are negative growth. Chest x-ray obtained on 11/22/17, impression: "Pulmonary interstitial edema." SURGERIES AND PROCEDURES DURING THE HOSPITAL STAY: Included incision and debridement of the right proximal tibia and arthroscopic washout of the right knee performed by Dr. Herndon on 11/21/17. HOSPITALIZATION COURSE: Alexander Sr is a 72-year-old male with a history of 2 surgeries on his right knee, the last one being in [facility] in 2012, who has had problems with right knee pain since August of 2017. He presented to the hospital on 11/20/17 complaining of fevers, right knee swelling. Initially, Dr. Herndon saw the patient in consultation and thought was potentially the patient has osteomyelitis of the right tibia. Unfortunately , the patient continued to have rigors and being febrile despite IV antibiotic coverage and on 11/21/17, when his blood cultures were positive for MSSA and his knee continued to be extremely painful, the patient was taken for a washout to the operating room performed by Dr. Herndon. Dr. Herndon noted purulent discharge after washing out the right knee prosthesis. Postoperatively, the patient did fairly well. Dr. Haas saw the patient in consultation and recommended cefazolin, which the patient is currently on intravenously. For a couple of days, he did okay, but on 11/24/17, his C-reactive protein was markedly elevated again and he became febrile again. He also felt weak and his right knee has purulent discharge from the postoperative wounds. At that point, Dr. Monae saw the patient for followup orthopedic evaluation and noted that the patient needs an extraction of his existing hardware in the right knee and another washout. Unfortunately, we do not have an orthopedic surgeon that is able to do this procedure at [facility]. A transfer was requested. I spoke with both Dr. Javier and Dr. Martin, hospitalist and orthopedic surgeon, from [facility] respectively. Both of the physicians kindly accepted the patient for transfer. Please also note that during the patient's postoperative period at [facility], the patient was in fluid overload. His portable chest x-ray showed vascular congestion and he became hypoxemic. He required several doses of intravenous Lasix postoperatively and although he appears euvolemic at the time of transfer, he continues to be hypoxemic and requiring 2 L of oxygen via nasal cannula. For physical exam at the time of discharge, please see daily progress notes, but shortly, the patient is a very pleasant, alert, and oriented, 72-year-old male, in no acute distress. Lungs are grossly clear. Cardiovascular evaluation is also within normal limits. The right knee is tender to palpation with edema and postsurgical incisions in place draining purulent substance. Neurologically, the patient is grossly intact. The patient is being transferred to [facility] under the attending of Dr. Javier. Please note that this is a short summary of the patient's hospital stay. Please refer to further medical records for details. TIME SPENT: Approximately 50 minutes was spent on the patient's transfer. [id number]/CPS #: [id number] MTDD
[2017-11-24 16:53] VITALS: BP 141/62
[2017-11-25] MEDS ORDERED: Heparin VIAL(*) 5000 UNITS/ML VIAL (FIVE THOUSAND) SUBCUT SCH (06:00)
== END 2017-11-24 16:30 | disposition short-term general hospital (02) | DRG 485 ==
LOC: ED 11:35 → MED 13:52
PROVIDERS: ADMIT Internal Medicine; ATTEND Internal Medicine
PROC: 0S9C3ZX Drainage of Right Knee Joint, Percutaneous Approach, Diagnostic (ICD-10-PCS; principal; 2017-11-20)
PROC: 0SBC4ZZ Excision of Right Knee Joint, Percutaneous Endoscopic Approach (ICD-10-PCS; 2017-11-20)
PROC: 0Q9G0ZZ Drainage of Right Tibia, Open Approach (ICD-10-PCS; 2017-11-20)
DX: T84.53XA Infection and inflammatory reaction due to internal right knee prosthesis, initial encounter (principal); A41.01 Sepsis due to Methicillin susceptible Staphylococcus aureus; M86.8X6 Other osteomyelitis, lower leg; J98.11 Atelectasis; Z96.653 Presence of artificial knee joint, bilateral; E78.5 Hyperlipidemia, unspecified; E03.9 Hypothyroidism, unspecified; B95.61 Methicillin susceptible Staphylococcus aureus infection as the cause of diseases classified elsewhere; Y79.2 Prosthetic and other implants, materials and accessory orthopedic devices associated with adverse incidents; E87.70 Fluid overload, unspecified; R09.02 Hypoxemia; Z91.040 Latex allergy status; Z79.01 Long term (current) use of anticoagulants; Z91.048 Other nonmedicinal substance allergy status; Z82.49 Family history of ischemic heart disease and other diseases of the circulatory system; Z87.891 Personal history of nicotine dependence; Z72.89 Other problems related to lifestyle; Z23 Encounter for immunization; Y92.9 Unspecified place or not applicable
CPT/HCPCS: 36415; 71045; 71046; 80048; 80053; 83605; 84484; 85025; 85048; 85610; 85652; 85730; 86140; 87040; 87070; 87077; 87150; 87186; 87205; 87640; 87641; 90732; 93005; 99284; A9270-GY; J0330; J0690; J0692; J1100; J1240; J1644; J1885; J1940; J2250; J2270; J2310; J2405; J2704; J3010; J3370; J3480

== ENCOUNTER 2017-12-18 21:43 | Emergency (ER) | payer OTHER ==
[2017-12-18] MEDS ORDERED: oxyCODONE/Acetamin 5/325 MG* TAB PO ONE (22:41)
--- NOTE | 2017-12-18 23:46 | ED ---
Upper Extremity Pain - HPI Summary HPI Summary: This is denice Flores documenting for attending Dr. Hao Friedman MD. Pt is a 72 y/o M who presents to ED c/o right hand and wrist pain. Yesterday morning he fell while moving from his walker into his wheelchair. He did not hit the ground. The pain hurts the most when he tries to squeeze his fingers together, but the pain is in the hand. Rates his pain as an 8/10 in severity at triage. Recently had knee surgery and is staying at [facility] right now. He has about 4 more weeks on antibiotics and is taking Oxycodone 5. Took oxycodone 5 last night at 8 pm but it did not alleviate the arm pain. No pain in knee. - History of Current Complaint Chief Complaint: EDExtremityUpper Stated Complaint: PAIN IN HAND AND WRIST Time Seen by Provider: 12/18/17 22:22 Hx Obtained From: Patient Mechanism Of Injury: Fall From A Standing Position Onset/Duration: Started Hours Ago, Still Present Timing: Lasting Hours Severity Currently: Severe - 8/10 Pain Location: Hand Aggravating Factor(s): Flexion Alleviating Factor(s): Nothing - Allergies/Home Medications Allergies/Adverse Reactions: Allergies Allergy/AdvReac Type Severity Reaction Status Date / Time latex Allergy Hives Verified 12/18/17 21:54 neopreme Allergy Hives Uncoded 12/18/17 21:54 PMH/Surg Hx/FS Hx/Imm Hx Endocrine/Hematology History: Reports: Hx Thyroid Disease - takes medication Denies: Hx Anticoagulant Therapy, Hx Blood Disorders, Hx Bone Marrow Disease , Hx Diabetes Respiratory History: Denies: Hx Asthma, Hx Chronic Obstructive Pulmonary Disease (COPD) Musculoskeletal History: Reports: Hx Arthritis Denies: Hx Rheumatoid Arthritis, Hx Bursitis, Hx Gout Sensory History: Denies: Hx Contacts or Glasses, Hx Hearing Aid Opthamlomology History: Denies: Hx Contacts or Glasses - Surgical History Surgery Procedure, Year, and Place: bilateral knee replacements Infectious Disease History: No Infectious Disease History: Denies: Hx of Known/Suspected MRSA, Traveled Outside the [place] in Last 30 Days - Family History Known Family History: Positive: Hypertension - Social History Alcohol Use: Occasionally Hx Substance Use: No Substance Use Type: Reports: None Hx Tobacco Use: Yes - not currently Smoking Status (MU): Former Smoker Review of Systems Negative: Fever Positive: Other - Right hand pain All Other Systems Reviewed And Are Negative: Yes Physical Exam - Summary Physical Exam Summary: VITAL SIGNS: Reviewed. GENERAL: Patient is a well-developed and nourished male who is lying comfortable in the stretcher. Patient is not in any acute respiratory distress. HEAD AND FACE: No signs of trauma. No ecchymosis, hematomas or skull depressions. No sinus tenderness. EYES: PERRLA, EOMI x 2, No injected conjunctiva, no nystagmus. EARS: Hearing grossly intact. Ear canals and tympanic membranes are within normal limits. MOUTH: Oropharynx within normal limits. NECK: Supple, trachea is midline, no adenopathy, no JVD, no carotid bruit, no c- spine tenderness, neck with full ROM. CHEST: Symmetric, no tenderness at palpation LUNGS: Clear to auscultation bilaterally. No wheezing or crackles. CVS: Regular rate and rhythm, S1 and S2 present, no murmurs or gallops appreciated. ABDOMEN: Soft, non-tender. No signs of distention. No rebound no guarding, and no masses palpated. Bowel sounds are normal. EXTREMITIES: Tenderness over right hand. Knee brace on right leg. No edema, no cyanosis or clubbing. NEURO: Alert and oriented x 3. No acute neurological deficits. Speech is normal and follows commands. SKIN: Dry and warm Triage Information Reviewed: Yes Vital Signs On Initial Exam: Initial Vitals Temp Pulse Resp BP Pulse Ox 99.1 F 80 18 139/81 97 12/18/17 21:50 12/18/17 21:50 12/18/17 21:50 12/18/17 21:50 12/18/17 21:50 Vital Signs Reviewed: Yes Diagnostics - Vital Signs Vital Signs Temp Pulse Resp BP Pulse Ox 12/18/17 22:05 65 140/78 99 12/18/17 22:02 65 99 12/18/17 21:50 99.1 F 80 18 139/81 97 - Laboratory Lab Statement: Any lab studies that have been ordered have been reviewed, and results considered in the medical decision making process. - Radiology Right Hand X-Ray Radiology Interpretation Completed By: ED Physician - No fracture, pending official report. Right Wrist X-Ray Radiology Interpretation Completed By: ED Physician - No fracture, pending official report. Course/Dx - Course Course Of Treatment: Pt is a 72 y/o M who presents to ED c/o right hand and wrist pain. Yesterday morning he fell while moving from his walker into his wheelchair, but he did not hit the ground. Rates his pain as an 8/10 in severity at triage. Right hand X-ray showed no fracture, pending official report. Right wrist X-ray showed no fracture, pending official report. In the ED course pt was given oxycodone. Pt has been diagnosed with right wrist sprain and discharged. He was told to follow up with orthopedics and pt is agreeable with this plan. - Diagnoses Provider Diagnoses: Right wrist sprain Discharge - Sign-Out/Discharge Documenting (check all that apply): Patient Departure - Discharge - Discharge Plan Condition: Stable Disposition: HOME Patient Education Materials: Wrist Sprain (ED) Referrals: Zulema Jara [Primary Care Provider] - 2 Days Caryn Cesar MD [Medical Doctor] - 1 Day Additional Instructions: Follow up with orthopedics. RETURN TO ED FOR ANY NEW OR WORSENING SYMPTOMS.
[2017-12-19 02:01] VITALS: BP 125/79
--- NOTE | 2017-12-19 08:14 | RAD ---
Indication: Right hand injury and fall. 4 views of the right hand demonstrates no fracture. Degenerative changes of the proximal and distal interphalangeal joints of the second through fifth digit is noted. IMPRESSION: No fracture of the right hand is noted.
--- NOTE | 2017-12-19 08:14 | RAD ---
Indication: Right wrist injury 3 views of the wrist demonstrates no fracture. No other bone or joint abnormality is identified. IMPRESSION: NO FRACTURE OF THE WRIST IS NOTED.
== END 2017-12-19 00:45 | disposition home or self-care (01) ==
LOC: ED 21:43
DX: S63.501A Unspecified sprain of right wrist, initial encounter (principal); X58.XXXA Exposure to other specified factors, initial encounter; Y92.9 Unspecified place or not applicable; E07.9 Disorder of thyroid, unspecified; Z79.899 Other long term (current) drug therapy; Z87.891 Personal history of nicotine dependence; Z88.8 Allergy status to other drugs, medicaments and biological substances
CPT/HCPCS: 99283; A9270-GY

== ENCOUNTER → 2018-01-03 04:20 | Emergency (ER) | payer OTHER ==
[~2018-01-03 04:20] MED LIST: Lidocaine 2% JELLY* 6 ML JELLY TOPICAL ONE
--- NOTE | 2018-01-03 04:32 | ED ---
Abdominal Pain/Male - HPI Summary HPI Summary: This is Wing galdamez documenting for attending physician Brad Knight MD. This patient is a 72 year old M BIBA to [facility] with a chief complaint of ABD pain for the last 48 hours. The patient rates the pain 8/10 in severity. Patient reports constipation, he has not had a BM in 2-3 days. The group home where he stays claims to have tried multiple remedies without relief. Patient denies fever and n/v/d. Pt has a knee immobilizer and a spacer on his right knee , he is taking pain medication for this. - History of Current Complaint Chief Complaint: EDAbdPain Stated Complaint: ABD PAIN Hx Obtained From: Patient Onset/Duration: Lasting Days - 2, Still Present Timing: Constant Severity Initially: Severe Severity Currently: Severe Pain Intensity: 8 Pain Scale Used: 0-10 Numeric Location: Diffuse Radiates: No Associated Signs And Symptoms: Positive: Constipation - Allergies/Home Medications Allergies/Adverse Reactions: Allergies Allergy/AdvReac Type Severity Reaction Status Date / Time latex Allergy Hives Verified 01/03/18 04:31 neopreme Allergy Hives Uncoded 01/03/18 04:31 Home Medications: Home Medications Acetaminophen 325 mg PO SEE INSTRUCTIONS PRN 01/03/18 [History Confirmed ] Enoxaparin(*) [Lovenox(*)] 30 mg SUBCUT BID 01/03/18 [History Confirmed 01/03/18 ] Ferrous Sulfate TAB* 325 mg PO TID 01/03/18 [History Confirmed 01/03/18] L. Acidophilus/L.bulgaricus [Lactobacillus Tablet] 1 each PO BID 01/03/18 [ History Confirmed 01/03/18] Latanoprost 0.005%* [Xalatan 0.005%*] 1 drop BOTH EYES QPM 01/03/18 [History Confirmed 01/03/18] Omeprazole 20 mg PO DAILY 01/03/18 [History Confirmed 01/03/18] Ondansetron [Zofran Odt] 4 mg PO SEE INSTRUCTIONS PRN 01/03/18 [History Confirmed 01/03/18] Oxycodone HCl 5 mg PO SEE INSTRUCTIONS PRN 01/03/18 [History Confirmed 01/03/18] PMH/Surg Hx/FS Hx/Imm Hx Endocrine/Hematology History: Reports: Hx Thyroid Disease - takes medication Denies: Hx Anticoagulant Therapy, Hx Blood Disorders, Hx Bone Marrow Disease , Hx Diabetes Respiratory History: Denies: Hx Asthma, Hx Chronic Obstructive Pulmonary Disease (COPD) Musculoskeletal History: Reports: Hx Arthritis Denies: Hx Rheumatoid Arthritis, Hx Bursitis, Hx Gout Sensory History: Denies: Hx Contacts or Glasses, Hx Hearing Aid Opthamlomology History: Denies: Hx Contacts or Glasses Neurological History: Denies: Hx Spinal Cord Injury - Surgical History Surgery Procedure, Year, and Place: bilateral knee replacements Infectious Disease History: No Infectious Disease History: Denies: Hx of Known/Suspected MRSA, Traveled Outside the [place] in Last 30 Days - Family History Known Family History: Positive: Hypertension - Social History Alcohol Use: None Hx Substance Use: No Substance Use Type: Reports: Marijuana Hx Tobacco Use: Yes - not currently Smoking Status (MU): Former Smoker Review of Systems Negative: Fever Positive: Abdominal Pain, Other - constipation . Negative: Vomiting, Diarrhea, Nausea All Other Systems Reviewed And Are Negative: Yes Physical Exam - Summary Physical Exam Summary: Appearance: Well appearing, no pain distress Skin: warm, dry, reflects adequate perfusion Head/face: normal Eyes: EOMI, SHAY ENT: normal Neck: supple, non-tender Respiratory: CTA, breath sounds present Cardiovascular: RRR, pulses symmetrical Abdomen: non-tender, firm Bowel Sounds: present Musculoskeletal:, strength/ROM intact there is post-surgical scar on the right knee and it is immobilized Neuro: normal, sensory motor intact, A&Ox3 Rectal: hard stool filling the rectal vault, no hemorrhoids, Triage Information Reviewed: Yes Vital Signs On Initial Exam: Initial Vitals Temp Pulse Resp BP Pulse Ox 97.7 F 86 20 137/88 100 01/03/18 04:22 01/03/18 04:22 01/03/18 04:22 01/03/18 04:22 01/03/18 04:22 Vital Signs Reviewed: Yes Procedures - Procedure Summary Procedure Summary: I manually dis-impacted large hard tiffani of stool after lido jelly in the rectum was placed, this was followed by a soap suds enema Diagnostics - Vital Signs Vital Signs Temp Pulse Resp BP Pulse Ox 01/03/18 04:22 97.7 F 86 20 137/88 100 - Laboratory Lab Statement: Any lab studies that have been ordered have been reviewed, and results considered in the medical decision making process. Abdominal Pain Fem Course/Dx - Course Course Of Treatment: Patient with abdominal distention and cramping related to being unable to pass stool for the last several days. He is currently on iron and oxycodone regularly. He is largely bedbound as he had a prosthetic knee removed for infection and only has a spacer in place right now. I disimpacted him of large hard balls of stool and then gave him a soapsuds enema. He had significant relief following this. He will be placed on a bowel regimen and will follow-up with the group home doctor. - Diagnoses Provider Diagnoses: Constipation, Medication side effect Discharge - Sign-Out/Discharge Documenting (check all that apply): Patient Departure - Discharge Plan Condition: Stable Disposition: HOME Prescriptions: Docusate Sodium [Colace] 100 mg PO BID #60 capsule Polyethylene Glycol 3350* [Miralax*] 17 gm PO DAILY #1 bottle Patient Education Materials: Constipation (ED) Referrals: Zulema Jara [Primary Care Provider] - 2 Days Additional Instructions: RETURN TO EMERGENCY DEPARTMENT FOR ANY NEW OR WORSENING SYMPTOMS Use MiraLAX up to 3 times daily to ensure regular bowel movements while on pain medication and iron. - Billing Disposition and Condition Condition: STABLE Disposition: Home Attestation Statement Scribe Attestation: This is Wing galdamez documenting for attending physician Brad Knight MD.
--- OUTSIDE RECORDS SUMMARY | 2018-01-03 04:49 | XMS REPORT ---
:1945 External Reference #:[id number] Author Organization [employer] Address [address] [address] Phone [phone] Care Team Providers Name Role Phone [facility] Primary Care Physician Unavailable Payers Type Date Identification Numbers Payment Provider Subscriber Commercial Policy Number: [id number] [employer] Alexander Sr PayID: [id number] [address] [place] [address] Commercial Policy Number: [id number] [place]/ [place] Alexander Sr PayID: [id number] [address] [address] [place] [address] Problems Date Description Provider Status Onset: 11/20/2017 Infection AND/OR inflammatory reaction Caryn Cesar M.D. Active due to internal prosthetic device, implant AND/OR graft Onset: 11/22/2017 Prosthetic arthroplasty of shoulder Claudio Herndon M.D. Active Family History Date Family Member(s) Problem(s) Comments General No Current Problems Social History Type Date Description Comments Lives With Female Partner Occupation Retired ETOH Use Denies alcohol use Smoking Patient has never smoked Exercise Type/Frequency Exercises regularly Allergies, Adverse Reactions, Alerts Date Description Reaction Status Severity Comments 11/13/2015 Neosporin Urticaria active Mild 01/08/2016 Tape rash/hives active Mild Medications Medication Date Status Form Strength Qnty SIG Indications Ordering Provider Levothyroxine /00/ Active Tablets 88mcg 1 by Unknown Sodium 0000 mouth every day Omeprazole / Active Capsules DR 40mg 1 by Unknown 0000 mouth every day Temazepam // Active Capsules 30mg 1 by Unknown 0000 mouth every night at bedtime Amlodipine / Active Tablets 5mg 1 by Unknown Besylate 0000 mouth every day Atorvastatin / Active Tablets 40mg 1 by Unknown Calcium 0000 mouth every day Hydralazine HCL / Active Tablets 25mg 1 by Unknown 0000 mouth three times a day Potassium / Active Tablets ER 10Meq 1 by Unknown Chloride Mahi 0000 mouth ER every day Latanoprost / Active Solution 0.005% both Unknown 0000 eyes once a day Fluticasone / Active Suspension 50mcg/Act 2 sprays Unknown Propionate 0000 each nostril daily as needed Acetaminophen / Active Capsules 500mg 1-2 by Unknown 0000 mouth q 4hrs as needed Enoxaparin / Active Solution 30mg/0.3ML 1 subq Unknown Sodium 0000 daily times 3 days Ferrous Sulfate / Active Elixir 220(44Fe) take 5 Unknown 0000 mg/5ML mls by mouth once daily with a small glass of orange juice Lactobacillus / Active Tablets 1 by Unknown 0000 mouth every day Oxycodone HCL / Active Tablets 5mg 1-2 tabs Unknown 0000 by mouth every 4-6 hours as needed [place] 05/25/ Hx Tablets 5-325mg 45tab 1 by M19.241 Caryn 2017 - s mouth q8 Arsenio, 12/28/ hour as Alysa 2017 needed pain Meloxicam / Hx Tablets 15mg once Unknown 0000 - daily 2018 food Medications Administered in Office Medication Date Status Form Strength Qnty SIG Indications Ordering Provider Depomedrol Administered Injection Caryn 40MG 017 Alysa Cesar Vital Signs Date Vital Result Comment 12/29/2017 Height 64 inches 5'4" - Not 53" as Reviously Record Weight 159.00 lb Heart Rate 80 /min BP Systolic 146 mmHg BP Diastolic 78 mmHg Respiratory Rate 12 /min Pain Level 3 BMI (Body Mass Index) 27.3 kg/m2 05/25/2016 Height 63 inches - height is 5'3" - Not 53" as Reviously Record Weight 190.00 lb Heart Rate 60 /min Respiratory Rate 16 /min Pain Level 5 BMI (Body Mass Index) 33.7 kg/m2 01/08/2016 Height 53 inches 4'5" Weight 190.00 lb Heart Rate 82 /min BP Systolic 152 mmHg BP Diastolic 78 mmHg BMI (Body Mass Index) 47.6 kg/m2 11/13/2015 Height 53 inches 4'5" Weight 190.00 lb Heart Rate 68 /min Respiratory Rate 16 /min Pain Level 4 BMI (Body Mass Index) 47.6 kg/m2 Results Description No Information Procedures Date CPT Code Description Status 11/21/2017 38519 Arthroscopy,Knee For Infection,Lavage & Drainage Completed 11/21/2017 41438 I&D Leg Or Ankle;Deep Abscess Or Hematoma Completed 05/25/2016 08039 Inject/Drain Joint/Bursa Small W/O US Completed 01/08/2016 38490 Rad Exam; Fingers Completed Encounters Type Date Location Provider CPT E/M Dx Office Visit 11/24/2017 [facility] Alannah Hohn, 70124 T84.53xA 4:07p [facility] B95.61 R09.02 Office Visit 11/24/2017 1:42p [facility] Aga Bennett 93440 T84.53xA Infectious Diseases Alysa Lacey R50.9 B95.61 Office Visit 11/23/2017 4:07p [facility] Alannah Alvarez, 58274 R06.02 [facility] T84.53xA B95.61 R09.02 Office Visit 11/22/2017 4:07p [facility] Alannah Alvarez, 51638 T84.53xA [facility] B95.61 R09.02 Office Visit 11/22/2017 1:31p [facility] Aga Bennett 92541 T84.53xA Infectious Diseases Alysa Lacey R78.81 R06.00 R09.02 Office Visit 11/21/2017 4:06p [facility] Alannah Alvarez, 22884 T84.53xA [facility] Alysa B95.61 Office Visit 11/20/2017 4:06p [facility] Wilma Chauhan, 35057 M25.561 Assoc, Hospitalists [employer]ARER R50.9 Office Visit 11/20/2017 6:13p [facility] Claudio Herndon, 67190 M86.261 Of [facility] Watt Z96.651 Office Visit 01/08/2016 9:30a [facility] Caryn Cesar, 86195 M19.241 Of [facility] [place] Alysa Office Visit 11/13/2015 2:30p Orth[facility] Services Caryn Cesar, 28238 G56.12 Of [facility] Watt Plan of Care 05/25/2016 - Caryn Cesar M.D.M19.241 Secondary osteoarthritis, right handNew Medication:[place] 5-325 mgFollow up:Follow up: As needed
[2018-01-03 05:58] VITALS: BP 130/78
== END | disposition home or self-care (01) ==
LOC: ED 04:20
DX: K59.00 Constipation, unspecified (principal); T50.905A Adverse effect of unspecified drugs, medicaments and biological substances, initial encounter; E07.9 Disorder of thyroid, unspecified; Z87.891 Personal history of nicotine dependence; Y92.9 Unspecified place or not applicable
CPT/HCPCS: 99283

== ENCOUNTER → 2018-12-28 11:09 | Day surgery (SDC) | payer OTHER ==
[~2018-12-28 11:09] MED LIST changes: +Acetaminophen TAB* 325 MG PO PRN; +Buffered Lidocaine 1% SYRIN* 1 ML/SYRINGE INTRADERM ONE; +Cyclopentolate 1% OPTH.SOL* 2 ML BTL ONE; +Ketorolac 0.5% OPHTH (NF) 0.5 % 5 ML BTL ONE; +Lidocaine 1% MPF ** 5 ML VIAL ONE; -Lidocaine 2% JELLY* 6 ML JELLY TOPICAL ONE; +Lidocaine 2% w/ EPI 1:200,000* 20 ML SDV VIAL ONE; +Midazolam* 1 MG/ML 2 ML VIAL (2 MG) ONE; +Neomycin/Polymy/Dex OPTH.SUSP* MAXITROL 0.1% 5 ML ONE; +Phenylephrine OPHTH SOL 2.5%* 2 ML ONE; +Povidone Iodine 5% OPTH* 30 ML BTL ONE; +Proparacaine 0.5% OPHTH.SOL* 15 ML BTL ONE; +acetaZOLAMIDE TAB* 250 MG ONE; +fentaNYL* 50 MCG/ML 2 ML VIAL (100 MCG VIAL) ONE
[2018-12-28 13:55] VITALS: BP 120/68
--- NOTE | 2018-12-28 14:47 | OP ---
DATE OF OPERATION: 12/28/18 - [facility] DATE OF : 43 SURGEON: Toribio Sandhu M.D. PREOPERATIVE DIAGNOSIS: Cataract, left eye. POSTOPERATIVE DIAGNOSIS: Cataract, left eye. OPERATIVE PROCEDURE: Extracapsular cataract extraction with intraocular lens implant left eye. INDICATION FOR COMPLEX CATARACT SURGERY: Pupillary abnormalities requiring pupil dilation device. DESCRIPTION OF PROCEDURE: The patient was brought to the operating room after being given 1/2% Alcaine with epinephrine drops in the preoperative area. The eye was prepped and draped in the usual sterile fashion. Sterile drape and eyelid speculum were placed. Again, topical 1/2% Alcaine with epinephrine was given. A paracentesis incision was made at the 3 o'clock position with the No.75 blade. Clear cornea incision 2.2 x 2.2-mm was created at the 6 o'clock position starting at the anterior limbus using the 2.2-mm keratome. The anterior chamber was irrigated with 0.4 mL of 1% non-preservative intracameral lidocaine and filled with DisCoVisc. A capsulorrhexis was completed using the cystotome and the Utrata forceps. Hydrodissection was performed with balanced salt solution. The lens nucleus was removed with the Phacoemulsification handpiece without incident. Cortex was removed with the irrigation-aspiration handpiece. The capsular bag was re-inflated using DisCoVisc and an [id number] implant was inserted with the shooter. Malyugin ring was used to dilate the pupil prior to capsulorrhexis for a small pupil. The irrigation-aspiration handpiece was used to remove all residual DisCoVisc. The eye was refilled with balanced salt solution and the wound checked and found to be watertight. Topical Maxitrol drops were given. [id number]/[facility] #: [id number] [facility]ALTiffany
== END | disposition home or self-care (01) ==
LOC: OREAST 11:09
PROVIDERS: ATTEND Specialist
DX: H25.812 Combined forms of age-related cataract, left eye (principal); H40.1132 Primary open-angle glaucoma, bilateral, moderate stage; Z87.891 Personal history of nicotine dependence; I10 Essential (primary) hypertension; E03.9 Hypothyroidism, unspecified; M19.90 Unspecified osteoarthritis, unspecified site; K21.9 Gastro-esophageal reflux disease without esophagitis
CPT/HCPCS: A9270-GY; J2250; J3010; V2632